=== PATIENT | female | born 1950 | race African-American/Black ===

== ENCOUNTER 2018-08-29 09:12 | Inpatient (IN) | payer MEDICARE, MEDICAID ==
--- NOTE | 2018-08-29 09:44 | ED Physician Chart ---
ED Chief Complaint/HPI - Patient Information Date Seen:: 08/29/18 Time Seen:: 09:35 Chief Complaint:: aggressive behavior History of Present Illness:: Patient has been verbally aggressive and striking out at her extended care facility. Patient states she does not want to return to the facility as she is in now. Allergies:: Allergies Allergy/AdvReac Type Severity Reaction Status Date / Time acetaminophen [From [place]] Allergy Verified 08/29/18 09:33 fluoxetine [From Prozac] Allergy Verified 08/29/18 09:35 gabapentin [From Neurontin] Allergy Verified 08/29/18 09:34 hydrocodone [From [place]] Allergy Verified 08/29/18 09:33 quetiapine [From Seroquel] Allergy Verified 08/29/18 09:35 Historian:: Patient Review:: Nurse's Note Reviewed, Transfer documents Reviewed ED Review of Systems - Review of Systems General/Constitutional: No fever, No chills, No weight loss, No weakness, No diaphoresis, No edema, No loss of appetite Skin: No skin lesions, No rash, No bruising Head: No headache, No light-headedness Eyes: No loss of vision, No pain, No diplopia ENT: No earache, No nasal drainage, No sore throat, No tinnitus Neck: No neck pain, No swelling, No thyromegaly, No stiffness, No mass noted Cardio Vascular: No chest pain, No palpitations, No PND, No orthopnea, No edema Pulmonary: No SOB, No cough, No sputum, No wheezing GI: No nausea, No vomiting, No diarrhea, No pain, No melena, No hematochezia, No constipation, No hematemesis G/U: No dysuria, No frequency, No hematuria Musculoskeletal: No bone or joint pain, No back pain, No muscle pain Endocrine: No polyuria, No polydipsia Psychiatric: Depression, Anxiety Hematopoietic: No bruising, No lymphadenopathy Allergic/Immuno: No urticaria, No angioedema Neurological: No syncope, No focal symptoms, No weakness, No paresthesia, No headache, No seizure, No dizziness, No confusion, No vertigo ED Past Medical History - Past Medical History Past Medical History: HTN, Arthritis, Other (anxiety; impulse disorder; depression; schizophrenia; extrapyramidal symptoms) Family History: None, Other (patient states she does not know her family) Social History: Smoker, Care Facility Surgical History: None Psychiatricy History: Depression, Schizophrenia, Bipolar Family Medical History - Family Member Mother History Unknown: Yes ED Physical Exam - Physical Examination General/Constitutional: Awake, Well-developed, well-nourished Other Gen/Cons comments:: Patient is alert and oriented to the correct month and year but does not know the date Head: Atraumatic Eyes: Lids, conjuctiva normal, PERRL Skin: Nl inspection, No rash, No skin lesions, No ecchymosis ENMT: External ears, nose nl, TM canals nl, Nasal exam nl Other ENMT comments:: Complete upper and lower dentures Neck: No nuchal rigidity Respiratory: Nl effort/Exclusion, Clear to Auscultation Cardio Vascular: RRR, No murmur, gallop, rubs, NL S1 S2 GI: No tenderness/rebounding/guarding, No organomegaly, No hernia, Normal BS's, Nondistended, No mass/bruits : No CVA tenderness Extremities: No tenderness or effusion, Full ROM Neuro/Psych: No focal deficits Misc: No paraspinal tenderness ED Labs/Radiology/EKG Results - Lab Results Results: Laboratory Results Urine Source CLEAN C 08/29/18 09:30 Urine Color YELLOW 08/29/18 09:30 Urine Clarity CLEAR (CLEAR) 08/29/18 09:30 Urine pH 6.5 (4.6 - 8.0) 08/29/18 09:30 Ur Specific [place] 1.010 (1.005-1.030) 08/29/18 09:30 Urine Protein NEGATIVE mg/dL (NEGATIVE) 08/29/18 09:30 Urine Glucose (UA) NEGATIVE mg/dL (NEGATIVE) 08/29/18 09:30 Urine Ketones NEGATIVE mg/dL (NEGATIVE) 08/29/18 09:30 Urine Blood TRACE (NEGATIVE) 08/29/18 09:30 Urine Nitrate NEGATIVE (NEGATIVE) 08/29/18 09:30 Urine Bilirubin NEGATIVE (NEGATIVE) 08/29/18 09:30 Urine Urobilinogen 1.0 E.U./dL (0.2 - 1.0) 08/29/18 09:30 Ur Leukocyte Esterase TRACE (NEGATIVE) H 08/29/18 09:30 Urine RBC 0-2 /hpf (0-5) 08/29/18 09:30 Urine WBC 2-5 /hpf (0-5) 08/29/18 09:30 Ur Epithelial Cells OCCASIONAL /lpf (FEW) 08/29/18 09:30 Urine Bacteria FEW /hpf (NONE SEEN) 08/29/18 09:30 - EKG Interpretations Rate & Rhythm: normal sinus rhythm with a rate 81 [place]: normal Comments:: Q waves in V1 and V2 ED Assessment - Assessment General Assessment: Patient initially refused blood tests. I asked her second time and she still refused. Patient is not a 5150 so she has a right to refuse. I spoke to Troy Ledesma director [facility] who accepted the patient. ED Septic Shock - . Is Septic Shock (SBP<90, OR Lactate>4 mmol\L) present?: No ED Reassessment (Disposition) - Reassessment Reassessment Condition:: Unchanged - Diagnosis Diagnosis:: Schizophrenia with aggressive behavior; bipolar disorder; osteoarthritis; limited database due to refusal of blood tests drawn - Patient Disposition Admitted to:: [facility] Admitting Medical Physician:: Willie Mays Admitting Psych Physician:: Claribel Ramon Condition at Disposition:: Stable, Unchanged
[2018-08-29 09:53] LABS: URINE SOURCE CLEAN C
[2018-08-29 09:57] LABS: URINE BILIRUBIN NEGATIVE (NEGATIVE); URINE BLOOD TRACE (NEGATIVE); URINE GLUCOSE (UA) NEGATIVE (NEGATIVE); URINE KETONE NEGATIVE (NEGATIVE); URINE LEUKOCYTE ESTERASE TRACE (NEGATIVE); URINE MICROSCOPIC INDICATED? YES; URINE NITRATE NEGATIVE (NEGATIVE); URINE PH 6.5 (4.6 - 8.0); URINE PROTEIN NEGATIVE (NEGATIVE)
[2018-08-29 09:59] LABS: URINE CLARITY CLEAR (CLEAR); URINE COLOR YELLOW
[2018-08-29 10:06] LABS: URINE BACTERIA FEW /hpf (NONE SEEN); URINE EPITHELIAL CELLS OCCASIONAL /lpf (FEW); URINE RBC 0-2 /hpf (0-5)
[2018-08-29 12:09] VITALS: BP 147/88
[2018-08-29] MEDS ORDERED: Maalox 30 mL Cup PO PRN (12:09)
[2018-08-29] MEDS ORDERED: Magnesium Hydroxide (MOM) 30 mL UDC PO PRN (12:09)
[2018-08-29] MEDS ORDERED: CELECOXIB 100 MG PO SCH (17:00)
[2018-08-29] MEDS ORDERED: NIFEDIPINE 60 MG PO SCH (17:00)
[2018-08-29] MEDS ORDERED: Non-Formulary Item 1 EA (Acetaminophen [Pain Reliever] 650 MG) PO PRN (17:16)
--- NOTE | 2018-08-29 17:56 | History & Physical ---
ADMIT DATE: 08/29/2018 HISTORY OF PRESENT ILLNESS: The patient is a 68-year-old female with long history of hypertension, degenerative joint disease, seizure disorder, psychosis, admitted to [facility] under Dr. Ramon's service. The patient denies any chest pain, shortness of breath, nausea, vomiting, fever or chills. PAST MEDICAL HISTORY: Significant for hypertension, degenerative joint disease, seizure disorder, psychosis. PAST SURGICAL HISTORY: No recent surgery. SUBSTANCE ABUSE: None. SOCIAL HISTORY: No smoking, no alcohol, no drug. FAMILY HISTORY: Noncontributory. MEDICATIONS: Follow admission reconciliation. ALLERGIES: ACETAMINOPHEN, FLUOXETINE, NEURONTIN, HYDROCODONE, QUETIAPINE. REVIEW OF SYSTEMS: RENAL SYSTEM: No history of chronic renal disorder. CARDIOVASCULAR SYSTEM: She has history of hypertension. ENDOCRINE SYSTEM: No diabetes or thyroid problem. GASTROINTESTINAL SYSTEM: No upper or lower GI bleeding. NEUROLOGICAL SYSTEM: She has history of seizure disorder. SKELETOMUSCULAR SYSTEM: No muscular dystrophy. HEMATOLOGICAL SYSTEM: No bleeding tendencies. RESPIRATORY SYSTEM: No asthma. GENITOURINARY SYSTEM: No dysuria or hematuria. PHYSICAL EXAMINATION: GENERAL: She is awake, alert, mildly confused. No focal deficit. VITAL SIGNS: Temperature 98.2, heart rate 69, blood pressure 140/87. HEENT: Normocephalic. Pupils reactive to light and accommodation. Sclerae clear. NECK: Supple. Negative for lymphadenopathy, JVD, or bruit. CHEST: Entry of air bilaterally normal. No rales, rhonchi or wheezing. HEART: S1, S2 normal. No gallop rhythm. ABDOMEN: Soft, bowel sounds positive. EXTREMITIES: No edema. NEUROLOGIC: She is awake, alert, mildly confused. No focal deficit. Cranial nerves 2-12 intact. ASSESSMENT: 1. Hypertension. 2. Degenerative joint disease. 3. Seizure disorder. 4. Psychosis. PLAN: The patient admitted to the hospital under Dr. Ramon's service. Medical problem addressed during hospitalization is psychosis. Medical problems addressed at discharge are hypertension, degenerative joint disease, seizure disorder. The patient is medically stable for activity. The patient is a full code. Thank you Dr. Ramon for asking me to see your patient. JOB# [id number]
[2018-08-29] MEDS: NIFEdipine 30 mg ER Tab PO SCH (18:03)
[2018-08-29] MEDS ORDERED: Non-Formulary Item 1 EA (Carbamazepine [Tegretol Xr] 400 MG) PO SCH (21:00)
[2018-08-29] MEDS: Benztropine 1 MG TAB PO SCH (21:23)
[2018-08-30] MEDS: NIFEdipine 30 mg ER Tab PO SCH ×2 (08:52→16:49)
[2018-08-30] MEDS: Multivitamin Tab PO SCH (08:53)
[2018-08-30] MEDS ORDERED: Non-Formulary Item 1 EA (Multivitamin [Multivitamins] 1 CAP) PO SCH (09:00)
[2018-08-30] MEDS: Benztropine 1 MG TAB PO SCH (20:35)
[2018-08-30] MEDS ORDERED: OLANZapine 5 mg Oral Disintegrating Tab PO SCH (21:00)
--- NOTE | 2018-08-30 23:45 | Internal Medicine Prog Note ---
Internal Medicine Subjective - Subjective Service Date: 08/30/18 Patient seen and examined:: without staff Patient is:: awake, verbal, in bed, talking, confused Per staff patient has:: no adverse event Internal Medicine Objective - Results Recent Labs: Laboratory Last Values Urine Source CLEAN C 08/29/18 09:30 Urine Color YELLOW 08/29/18 09:30 Urine Clarity CLEAR (CLEAR) 08/29/18 09:30 Urine pH 6.5 (4.6 - 8.0) 08/29/18 09:30 Ur Specific [place] 1.010 (1.005-1.030) 08/29/18 09:30 Urine Protein NEGATIVE mg/dL (NEGATIVE) 08/29/18 09:30 Urine Glucose (UA) NEGATIVE mg/dL (NEGATIVE) 08/29/18 09:30 Urine Ketones NEGATIVE mg/dL (NEGATIVE) 08/29/18 09:30 Urine Blood TRACE (NEGATIVE) 08/29/18 09:30 Urine Nitrate NEGATIVE (NEGATIVE) 08/29/18 09:30 Urine Bilirubin NEGATIVE (NEGATIVE) 08/29/18 09:30 Urine Urobilinogen 1.0 E.U./dL (0.2 - 1.0) 08/29/18 09:30 Ur Leukocyte Esterase TRACE (NEGATIVE) H 08/29/18 09:30 Urine RBC 0-2 /hpf (0-5) 08/29/18 09:30 Urine WBC 2-5 /hpf (0-5) 08/29/18 09:30 Ur Epithelial Cells OCCASIONAL /lpf (FEW) 08/29/18 09:30 Urine Bacteria FEW /hpf (NONE SEEN) 08/29/18 09:30 - Physical Exam Vitals and I&O: Vital Signs Temp 97.1 F 08/30/18 20:00 Pulse 72 08/30/18 20:00 Resp 20 08/30/18 20:00 BP 141/88 08/30/18 20:00 Pulse Ox 98 08/30/18 20:00 Intake & Output 08/30/18 08/30/18 08/31/18 06:59 18:59 06:59 Intake Total 120 1000 Balance 120 1000 Intake: Oral 120 1000 Other: # Voids 2 4 # Bowel Movements 0 1 Active Medications: Current Medications Acetaminophen (Tylenol) 650 mg PO Q4HR PRN PRN Reason: Mild Pain / Temp above 100 Stop: 10/28/18 12:08 Al Hydrox/Mg Hydrox/Simethicone (Maalox) 30 ml PO Q4HR PRN PRN Reason: GI DISTRESS Stop: 10/28/18 12:08 Benztropine Mesylate (Cogentin) 2 mg PO HS NICOLE Stop: 10/28/18 20:59 Last Admin: 08/30/18 20:35 Dose: Not Given Carbamazepine (Tegretol) 400 mg PO HS NICOLE Stop: 10/28/18 20:59 Last Admin: 08/30/18 20:35 Dose: Not Given Celecoxib (Celebrex) 100 mg PO BID NICOLE Stop: 10/28/18 16:59 Last Admin: 08/30/18 16:49 Dose: 100 mg Docusate Sodium (Colace) 100 mg PO DAILY NICOLE Stop: 10/29/18 08:59 Last Admin: 08/30/18 08:53 Dose: 100 mg Lorazepam (Ativan) 0.5 mg PO Q4H PRN; Protocol PRN Reason: Agitation Stop: 10/28/18 16:54 Magnesium Hydroxide (Milk Of Magnesia) 30 ml PO HS PRN PRN Reason: Constipation Multivitamins/Vitamin C (Theragran) 1 tab PO DAILY NICOLE Stop: 10/29/18 08:59 Last Admin: 08/30/18 08:53 Dose: 1 tab Nifedipine (Procardia Xl) 60 mg PO BID NICOLE Stop: 10/28/18 16:59 Last Admin: 08/30/18 16:49 Dose: 60 mg Olanzapine (Zyprexa Zydis) 5 mg PO HS NICOLE; Protocol Stop: 10/29/18 20:59 Last Admin: 08/30/18 20:35 Dose: Not Given Zolpidem Tartrate (Ambien) 5 mg PO HS PRN PRN Reason: Insomnia Stop: 10/28/18 12:08 General: alert HEENT: NC/AT, PERRLA, EOMI, anicteric sclerae, throat clear Neck: Supple, No JVD, No thyromegaly, +2 carotid pulse wo bruit, No LAD Lungs: CTAB Cardiovascular: Normal S1, Normal S2, without murmur Abdomen: soft, non-tender, non-distended Extremities: clear Neurological: no change Internal Medicine Assmt/Plan - Assessment Assessment: 1.HTN. 2.SEIZURE. 3.PSYCHOSIS - Plan Plan: CONTINUE ON CURRENT MEDICATION AND DIET.
--- NOTE | 2018-08-30 23:47 | Psychiatric Evaluation ---
DATE OF SERVICE: 08/29/2018 CHIEF COMPLAINT: Agitation and aggressive behavior. HISTORY OF PRESENT ILLNESS: The patient is a 68-year-old female with history of bipolar disorder. The patient was transferred from [facility] because of the striking out behavior and tried to hit staff and other patients. The patient also has been verbally abusive and verbally aggressive toward the staff and others. She also has not been able to follow any of directions. Staff was not able to handle her agitation and her irritability and the patient was transferred to [facility]. The patient is still angry and agitated and in irritable mood. She is taking Tegretol, but it is not helping to control her temper and the patient needs lots of redirections. PAST PSYCHIATRIC HISTORY: The patient has a diagnosis of bipolar disorder and she is taking Tegretol. PAST MEDICAL HISTORY: The patient has hypertension as well as muscle weakness. SOCIAL HISTORY: The patient said that she is single, never and that she has no children. She denies smoking cigarettes, drinking alcohol, use any street drugs. ALLERGIES: NORCO, NEURONTIN, PROZAC AND SEROQUEL. MENTAL STATUS EXAMINATION: A 68-year-old -Citizen Of [place] female, appears slightly older than her stated age. Anxious, sad affect. In a depressed mood. Irritable and easily agitated. Seems to be preoccupied and responding at times. The patient denied any auditory or visual hallucinations, but seems to be actively responding. The patient denies any actual suicidal or homicidal ideations, but she is agitated and in irritable mood. The patient is alert and oriented to time and situation and person, but not to date or place. Intact immediate, recent and remote memories and she did remember her birthday and she remembered that she lives in a assisted at [place]. She seems to be of average intelligence based on her verbal ability. ASSESSMENT: PRIMARY DIAGNOSES: Bipolar disorder, manic episode, severe, with psychotic features. MEDICAL DIAGNOSES: Hypertension, muscle weakness. TREATMENT PLAN: We will continue to monitor her behavior and her condition closely. Also, we will monitor Tegretol and we will add Zyprexa and will adjust the dose. Also, we will work on behavioral modification and her poor impulse control. ESTIMATED LENGTH OF STAY: 5-7 days. THE PATIENT'S STRENGTHS AND WEAKNESSES: The patient's strength is not clear at this time. Weaknesses are ineffective coping and poor impulse control. AFTER DISCHARGE PLAN: The patient will return to [facility] and outpatient treatment and followup will continue as an outpatient. CRITERIA FOR DISCHARGE: The patient will not be psychotic and aggressive and will stabilize psychotropic medications and will establish outpatient treatment plans. [facility]# [id number]
[2018-08-31] MEDS: Multivitamin Tab PO SCH (09:08)
[2018-08-31] MEDS: NIFEdipine 30 mg ER Tab PO SCH ×2 (09:08→16:54)
--- NOTE | 2018-08-31 15:21 | Internal Medicine Prog Note ---
Internal Medicine Subjective - Subjective Service Date: 08/31/18 Patient seen and examined:: without staff (SHE STILL HAS JOINTS PAIN) Patient is:: awake, verbal, in bed, talking, confused Per staff patient has:: no adverse event Internal Medicine Objective - Results Recent Labs: Laboratory Last Values Urine Source CLEAN C 08/29/18 09:30 Urine Color YELLOW 08/29/18 09:30 Urine Clarity CLEAR (CLEAR) 08/29/18 09:30 Urine pH 6.5 (4.6 - 8.0) 08/29/18 09:30 Ur Specific [place] 1.010 (1.005-1.030) 08/29/18 09:30 Urine Protein NEGATIVE mg/dL (NEGATIVE) 08/29/18 09:30 Urine Glucose (UA) NEGATIVE mg/dL (NEGATIVE) 08/29/18 09:30 Urine Ketones NEGATIVE mg/dL (NEGATIVE) 08/29/18 09:30 Urine Blood TRACE (NEGATIVE) 08/29/18 09:30 Urine Nitrate NEGATIVE (NEGATIVE) 08/29/18 09:30 Urine Bilirubin NEGATIVE (NEGATIVE) 08/29/18 09:30 Urine Urobilinogen 1.0 E.U./dL (0.2 - 1.0) 08/29/18 09:30 Ur Leukocyte Esterase TRACE (NEGATIVE) H 08/29/18 09:30 Urine RBC 0-2 /hpf (0-5) 08/29/18 09:30 Urine WBC 2-5 /hpf (0-5) 08/29/18 09:30 Ur Epithelial Cells OCCASIONAL /lpf (FEW) 08/29/18 09:30 Urine Bacteria FEW /hpf (NONE SEEN) 08/29/18 09:30 - Physical Exam Vitals and I&O: Vital Signs Temp 98.7 F 08/31/18 14:00 Pulse 76 08/31/18 14:00 Resp 20 08/31/18 14:00 BP 148/90 08/31/18 14:00 Pulse Ox 94 08/31/18 14:00 Intake & Output 08/30/18 08/31/18 08/31/18 18:59 06:59 18:59 Intake Total 1000 360 Balance 1000 360 Intake: Oral 1000 360 Other: # Voids 4 2 # Bowel Movements 1 Active Medications: Current Medications Acetaminophen (Tylenol) 650 mg PO Q4HR PRN PRN Reason: Mild Pain / Temp above 100 Stop: 10/28/18 12:08 Al Hydrox/Mg Hydrox/Simethicone (Maalox) 30 ml PO Q4HR PRN PRN Reason: GI DISTRESS Stop: 10/28/18 12:08 Benztropine Mesylate (Cogentin) 2 mg PO HS NICOLE Stop: 10/28/18 20:59 Last Admin: 08/30/18 20:35 Dose: Not Given Carbamazepine (Tegretol) 400 mg PO HS NICOLE Stop: 10/28/18 20:59 Last Admin: 08/30/18 20:35 Dose: Not Given Celecoxib (Celebrex) 100 mg PO BID NICOLE Stop: 10/28/18 16:59 Last Admin: 08/31/18 09:08 Dose: Not Given Docusate Sodium (Colace) 100 mg PO DAILY NICOLE Stop: 10/29/18 08:59 Last Admin: 08/31/18 09:08 Dose: Not Given Lorazepam (Ativan) 0.5 mg PO Q4H PRN; Protocol PRN Reason: Agitation Stop: 10/28/18 16:54 Magnesium Hydroxide (Milk Of Magnesia) 30 ml PO HS PRN PRN Reason: Constipation Multivitamins/Vitamin C (Theragran) 1 tab PO DAILY NICOLE Stop: 10/29/18 08:59 Last Admin: 08/31/18 09:08 Dose: Not Given Nifedipine (Procardia Xl) 60 mg PO BID NICOLE Stop: 10/28/18 16:59 Last Admin: 08/31/18 09:08 Dose: Not Given Olanzapine (Zyprexa Zydis) 7.5 mg PO HS NICOLE; Protocol Stop: 10/30/18 20:59 Zolpidem Tartrate (Ambien) 5 mg PO HS PRN PRN Reason: Insomnia Stop: 10/28/18 12:08 General: alert HEENT: NC/AT, PERRLA, EOMI, anicteric sclerae, throat clear Neck: Supple, No JVD, No thyromegaly, +2 carotid pulse wo bruit, No LAD Lungs: CTAB Cardiovascular: Normal S1, Normal S2, without murmur Abdomen: soft, non-tender, non-distended Extremities: clear Neurological: no change Internal Medicine Assmt/Plan - Assessment Assessment: 1.HTN. 2.SEIZURE. 3.POLYARTHRITIS 4.PSYCHOSIS - Plan Plan: CONTINUE ON CURRENT MEDICATION AND DIET.
[2018-08-31] MEDS: Benztropine 1 MG TAB PO SCH (20:59)
[2018-08-31] MEDS: OLANZapine 5 mg Oral Disintegrating Tab PO SCH (21:00)
--- NOTE | 2018-08-31 23:10 | Progress Notes ---
DATE: 08/31/2018 SUBJECTIVE: A 68-year-old female with history of bipolar, transferred from [facility], striking out behaviors, verbally abusive, verbally aggressive towards others, preoccupied. On [id number], the patient notes she is "very agitated" at people stating that she has no money, getting into arguments with roommates, noncompliant with medications, believing that the medications are not her. Noted to be loud, screaming, yelling, difficult to approach. ASSESSMENT: The patient is agitated, irritable, suspicious, and paranoid. PLAN: We will continue to monitor and will be recommending titration of the antipsychotic medications. [facility]# [id number]
[2018-09-01] MEDS: Multivitamin Tab PO SCH (09:20)
[2018-09-01] MEDS: NIFEdipine 30 mg ER Tab PO SCH ×2 (09:20→16:09)
--- NOTE | 2018-09-01 18:50 | Internal Medicine Prog Note ---
Internal Medicine Subjective - Subjective Service Date: 09/01/18 Patient seen and examined:: without staff (SHE FEELS WELL) Patient is:: awake, verbal, in bed, talking, confused Per staff patient has:: no adverse event Internal Medicine Objective - Results Recent Labs: Laboratory Last Values Urine Source CLEAN C 08/29/18 09:30 Urine Color YELLOW 08/29/18 09:30 Urine Clarity CLEAR (CLEAR) 08/29/18 09:30 Urine pH 6.5 (4.6 - 8.0) 08/29/18 09:30 Ur Specific [place] 1.010 (1.005-1.030) 08/29/18 09:30 Urine Protein NEGATIVE mg/dL (NEGATIVE) 08/29/18 09:30 Urine Glucose (UA) NEGATIVE mg/dL (NEGATIVE) 08/29/18 09:30 Urine Ketones NEGATIVE mg/dL (NEGATIVE) 08/29/18 09:30 Urine Blood TRACE (NEGATIVE) 08/29/18 09:30 Urine Nitrate NEGATIVE (NEGATIVE) 08/29/18 09:30 Urine Bilirubin NEGATIVE (NEGATIVE) 08/29/18 09:30 Urine Urobilinogen 1.0 E.U./dL (0.2 - 1.0) 08/29/18 09:30 Ur Leukocyte Esterase TRACE (NEGATIVE) H 08/29/18 09:30 Urine RBC 0-2 /hpf (0-5) 08/29/18 09:30 Urine WBC 2-5 /hpf (0-5) 08/29/18 09:30 Ur Epithelial Cells OCCASIONAL /lpf (FEW) 08/29/18 09:30 Urine Bacteria FEW /hpf (NONE SEEN) 08/29/18 09:30 - Physical Exam Vitals and I&O: Vital Signs Temp 97.4 F 09/01/18 06:45 Pulse 79 09/01/18 16:09 Resp 18 09/01/18 14:00 BP 177/105 09/01/18 16:09 Pulse Ox 98 09/01/18 06:45 Intake & Output 08/31/18 09/01/18 09/01/18 18:59 06:59 18:59 Intake Total 120 Balance 120 Intake: Oral 120 Other: # Voids 3 Active Medications: Current Medications Acetaminophen (Tylenol) 650 mg PO Q4HR PRN PRN Reason: Mild Pain / Temp above 100 Stop: 10/28/18 12:08 Al Hydrox/Mg Hydrox/Simethicone (Maalox) 30 ml PO Q4HR PRN PRN Reason: GI DISTRESS Stop: 10/28/18 12:08 Benztropine Mesylate (Cogentin) 2 mg PO HS NICOLE Stop: 10/28/18 20:59 Last Admin: 08/31/18 20:59 Dose: Not Given Carbamazepine (Tegretol) 400 mg PO HS NICOLE Stop: 10/28/18 20:59 Last Admin: 08/31/18 21:00 Dose: Not Given Celecoxib (Celebrex) 100 mg PO BID NICOLE Stop: 10/28/18 16:59 Last Admin: 09/01/18 16:07 Dose: Not Given Docusate Sodium (Colace) 100 mg PO DAILY NICOLE Stop: 10/29/18 08:59 Last Admin: 09/01/18 09:20 Dose: 100 mg Lorazepam (Ativan) 0.5 mg PO Q4H PRN; Protocol PRN Reason: Agitation Stop: 10/28/18 16:54 Magnesium Hydroxide (Milk Of Magnesia) 30 ml PO HS PRN PRN Reason: Constipation Multivitamins/Vitamin C (Theragran) 1 tab PO DAILY NICOLE Stop: 10/29/18 08:59 Last Admin: 09/01/18 09:20 Dose: Not Given Nifedipine (Procardia Xl) 60 mg PO BID NICOLE Stop: 10/28/18 16:59 Last Admin: 09/01/18 16:09 Dose: 60 mg Olanzapine (Zyprexa Zydis) 7.5 mg PO HS NICOLE; Protocol Stop: 10/30/18 20:59 Last Admin: 08/31/18 21:00 Dose: Not Given Zolpidem Tartrate (Ambien) 5 mg PO HS PRN PRN Reason: Insomnia Stop: 10/28/18 12:08 Last Admin: 09/01/18 00:42 Dose: 5 mg General: alert HEENT: NC/AT, PERRLA, EOMI, anicteric sclerae, throat clear Neck: Supple, No JVD, No thyromegaly, +2 carotid pulse wo bruit, No LAD Lungs: CTAB Cardiovascular: Normal S1, Normal S2, without murmur Abdomen: soft, non-tender, non-distended Extremities: clear Neurological: no change Internal Medicine Assmt/Plan - Assessment Assessment: 1.HTN. 2.SEIZURE. 3.POLYARTHRITIS 4.PSYCHOSIS - Plan Plan: CONTINUE ON CURRENT MEDICATION AND DIET.
--- NOTE | 2018-09-01 19:39 | Progress Notes ---
DATE: 09/01/2018 SUBJECTIVE: The patient slept for about 5 hours last night. Remains paranoid, delusional, yelling sometimes. Does not want to take psychiatric medications, refuses sometimes. Needing lot of prompting and redirection. Concerns about her compliance, she has been refusing for a few days, erratic when it comes to medications. Difficult to interview her as she gets really upset, demanding to leave, telling staff to get out of her room, agitated when she answers questions, is telling me that she wants somewhere to go. PLAN: We will continue to monitor ongoing concerns about her delusions, psychotic state, and med refusals. We will continue to monitor. She may need a [place] petition. JOB# [id number]
[2018-09-01] MEDS: Benztropine 1 MG TAB PO SCH (21:05)
[2018-09-01] MEDS: OLANZapine 5 mg Oral Disintegrating Tab PO SCH (21:06)
[2018-09-02] MEDS: risperiDONE 1 mg/mL 30 mL Bottle PO SCH (08:47)
[2018-09-02] MEDS: NIFEdipine 30 mg ER Tab PO SCH ×3 (09:47→17:55)
[2018-09-02] MEDS: Multivitamin Tab PO SCH (09:47)
[2018-09-02] MEDS: Benztropine 1 MG TAB PO SCH (20:33)
[2018-09-02] MEDS: OLANZapine 5 mg Oral Disintegrating Tab PO SCH (20:34)
--- NOTE | 2018-09-02 23:46 | Internal Medicine Prog Note ---
Internal Medicine Subjective - Subjective Service Date: 09/02/18 Patient seen and examined:: without staff Patient is:: awake, verbal, in bed, talking, confused Per staff patient has:: no adverse event Internal Medicine Objective - Results Recent Labs: Laboratory Last Values Urine Source CLEAN C 08/29/18 09:30 Urine Color YELLOW 08/29/18 09:30 Urine Clarity CLEAR (CLEAR) 08/29/18 09:30 Urine pH 6.5 (4.6 - 8.0) 08/29/18 09:30 Ur Specific [place] 1.010 (1.005-1.030) 08/29/18 09:30 Urine Protein NEGATIVE mg/dL (NEGATIVE) 08/29/18 09:30 Urine Glucose (UA) NEGATIVE mg/dL (NEGATIVE) 08/29/18 09:30 Urine Ketones NEGATIVE mg/dL (NEGATIVE) 08/29/18 09:30 Urine Blood TRACE (NEGATIVE) 08/29/18 09:30 Urine Nitrate NEGATIVE (NEGATIVE) 08/29/18 09:30 Urine Bilirubin NEGATIVE (NEGATIVE) 08/29/18 09:30 Urine Urobilinogen 1.0 E.U./dL (0.2 - 1.0) 08/29/18 09:30 Ur Leukocyte Esterase TRACE (NEGATIVE) H 08/29/18 09:30 Urine RBC 0-2 /hpf (0-5) 08/29/18 09:30 Urine WBC 2-5 /hpf (0-5) 08/29/18 09:30 Ur Epithelial Cells OCCASIONAL /lpf (FEW) 08/29/18 09:30 Urine Bacteria FEW /hpf (NONE SEEN) 08/29/18 09:30 - Physical Exam Vitals and I&O: Vital Signs Temp 97.9 F 09/02/18 21:01 Pulse 99 09/02/18 21:01 Resp 20 09/02/18 21:01 BP 130/90 09/02/18 21:01 Pulse Ox 90 09/02/18 21:01 Intake & Output 09/02/18 09/02/18 09/03/18 06:59 18:59 06:59 Intake Total 120 800 120 Balance 120 800 120 Intake: Oral 120 800 120 Other: # Voids 3 3 3 # Bowel Movements 0 1 0 Active Medications: Current Medications Al Hydrox/Mg Hydrox/Simethicone (Maalox) 30 ml PO Q4HR PRN PRN Reason: GI DISTRESS Stop: 10/28/18 12:08 Benztropine Mesylate (Cogentin) 2 mg PO HS [facility] Stop: 10/28/18 20:59 Last Admin: 09/02/18 20:33 Dose: Not Given Carbamazepine (Tegretol) 400 mg PO HS [facility] Stop: 10/28/18 20:59 Last Admin: 09/02/18 20:33 Dose: Not Given Celecoxib (Celebrex) 100 mg PO BID [facility] Stop: 10/28/18 16:59 Last Admin: 09/02/18 17:55 Dose: Not Given Docusate Sodium (Colace) 100 mg PO DAILY [facility] Stop: 10/29/18 08:59 Last Admin: 09/02/18 09:46 Dose: 100 mg Lorazepam (Ativan) 0.5 mg PO Q4H PRN; Protocol PRN Reason: Agitation Stop: 10/28/18 16:54 Last Admin: 09/02/18 10:47 Dose: 0.5 mg Magnesium Hydroxide (Milk Of Magnesia) 30 ml PO HS PRN PRN Reason: Constipation Multivitamins/Vitamin C (Theragran) 1 tab PO DAILY [facility] Stop: 10/29/18 08:59 Last Admin: 09/02/18 09:47 Dose: 1 tab Nifedipine (Procardia Xl) 60 mg PO BID [facility] Stop: 10/28/18 16:59 Last Admin: 09/02/18 17:55 Dose: Not Given Olanzapine (Zyprexa Zydis) 7.5 mg PO HS [facility]; Protocol Stop: 10/30/18 20:59 Last Admin: 09/02/18 20:34 Dose: Not Given Risperidone (Risperdal) 1 mg PO BID [facility]; Protocol Stop: 11/01/18 08:59 Zolpidem Tartrate (Ambien) 5 mg PO HS PRN PRN Reason: Insomnia Stop: 10/28/18 12:08 Last Admin: 09/02/18 20:33 Dose: 5 mg General: alert HEENT: NC/AT, PERRLA, EOMI, anicteric sclerae, throat clear Neck: Supple, No JVD, No thyromegaly, +2 carotid pulse wo bruit, No LAD Lungs: CTAB Cardiovascular: Normal S1, Normal S2, without murmur Abdomen: soft, non-tender, non-distended Extremities: clear Neurological: no change Internal Medicine Assmt/Plan - Assessment Assessment: 1.HTN. 2.SEIZURE. 3.POLYARTHRITIS 4.PSYCHOSIS - Plan Plan: CONTINUE ON CURRENT MEDICATION AND DIET.
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
[2018-09-03] MEDS: risperiDONE 1 mg/mL 30 mL Bottle PO SCH ×2 (08:46→17:26)
[2018-09-03] MEDS: Multivitamin Tab PO SCH (08:47)
[2018-09-03] MEDS: NIFEdipine 30 mg ER Tab PO SCH ×3 (09:10→17:25)
--- NOTE | 2018-09-03 10:48 | Internal Medicine Prog Note ---
Internal Medicine Subjective - Subjective Service Date: 09/03/18 Patient seen and examined:: with staff (SHE HAS LESS BACK PAIN) Patient is:: awake, verbal, in bed, talking, confused Per staff patient has:: no adverse event Internal Medicine Objective - Results Recent Labs: Laboratory Last Values Urine Source CLEAN C 08/29/18 09:30 Urine Color YELLOW 08/29/18 09:30 Urine Clarity CLEAR (CLEAR) 08/29/18 09:30 Urine pH 6.5 (4.6 - 8.0) 08/29/18 09:30 Ur Specific [place] 1.010 (1.005-1.030) 08/29/18 09:30 Urine Protein NEGATIVE mg/dL (NEGATIVE) 08/29/18 09:30 Urine Glucose (UA) NEGATIVE mg/dL (NEGATIVE) 08/29/18 09:30 Urine Ketones NEGATIVE mg/dL (NEGATIVE) 08/29/18 09:30 Urine Blood TRACE (NEGATIVE) 08/29/18 09:30 Urine Nitrate NEGATIVE (NEGATIVE) 08/29/18 09:30 Urine Bilirubin NEGATIVE (NEGATIVE) 08/29/18 09:30 Urine Urobilinogen 1.0 E.U./dL (0.2 - 1.0) 08/29/18 09:30 Ur Leukocyte Esterase TRACE (NEGATIVE) H 08/29/18 09:30 Urine RBC 0-2 /hpf (0-5) 08/29/18 09:30 Urine WBC 2-5 /hpf (0-5) 08/29/18 09:30 Ur Epithelial Cells OCCASIONAL /lpf (FEW) 08/29/18 09:30 Urine Bacteria FEW /hpf (NONE SEEN) 08/29/18 09:30 - Physical Exam Vitals and I&O: Vital Signs Temp 97.7 F 09/03/18 06:26 Pulse 70 09/03/18 09:26 Resp 19 09/03/18 06:26 BP 154/98 09/03/18 09:26 Pulse Ox 98 09/03/18 06:26 Intake & Output 09/02/18 09/03/18 09/03/18 18:59 06:59 18:59 Intake Total 800 240 Balance 800 240 Intake: Oral 800 240 Other: # Voids 3 2 # Bowel Movements 1 0 Active Medications: Current Medications Al Hydrox/Mg Hydrox/Simethicone (Maalox) 30 ml PO Q4HR PRN PRN Reason: GI DISTRESS Stop: 10/28/18 12:08 Benztropine Mesylate (Cogentin) 2 mg PO HS [facility] Stop: 10/28/18 20:59 Last Admin: 09/02/18 20:33 Dose: Not Given Carbamazepine (Tegretol) 400 mg PO HS [facility] Stop: 10/28/18 20:59 Last Admin: 09/02/18 20:33 Dose: Not Given Celecoxib (Celebrex) 100 mg PO BID [facility] Stop: 10/28/18 16:59 Last Admin: 09/03/18 08:47 Dose: Not Given Docusate Sodium (Colace) 100 mg PO DAILY [facility] Stop: 10/29/18 08:59 Last Admin: 09/03/18 08:47 Dose: Not Given Lorazepam (Ativan) 0.5 mg PO Q4H PRN; Protocol PRN Reason: Agitation Stop: 10/28/18 16:54 Last Admin: 09/02/18 10:47 Dose: 0.5 mg Magnesium Hydroxide (Milk Of Magnesia) 30 ml PO HS PRN PRN Reason: Constipation Multivitamins/Vitamin C (Theragran) 1 tab PO DAILY [facility] Stop: 10/29/18 08:59 Last Admin: 09/03/18 08:47 Dose: Not Given Nifedipine (Procardia Xl) 60 mg PO BID [facility] Stop: 10/28/18 16:59 Last Admin: 09/03/18 09:26 Dose: 60 mg Olanzapine (Zyprexa Zydis) 7.5 mg PO HS [facility]; Protocol Stop: 10/30/18 20:59 Last Admin: 09/02/18 20:34 Dose: Not Given Risperidone (Risperdal) 1 mg PO BID [facility]; Protocol Stop: 11/01/18 08:59 Last Admin: 09/03/18 08:46 Dose: Not Given Zolpidem Tartrate (Ambien) 5 mg PO HS PRN PRN Reason: Insomnia Stop: 10/28/18 12:08 Last Admin: 09/02/18 20:33 Dose: 5 mg General: alert HEENT: NC/AT, PERRLA, EOMI, anicteric sclerae, throat clear Neck: Supple, No JVD, No thyromegaly, +2 carotid pulse wo bruit, No LAD Lungs: CTAB Cardiovascular: Normal S1, Normal S2, without murmur Abdomen: soft, non-tender, non-distended Extremities: clear Neurological: no change Internal Medicine Assmt/Plan - Assessment Assessment: 1.HTN. 2.SEIZURE. 3.POLYARTHRITIS 4.PSYCHOSIS - Plan Plan: CONTINUE ON CURRENT MEDICATION AND DIET.
[2018-09-03] MEDS: OLANZapine 5 mg Oral Disintegrating Tab PO SCH ×2 (21:00→21:05)
[2018-09-03] MEDS: Benztropine 1 MG TAB PO SCH ×2 (21:00→21:04)
--- NOTE | 2018-09-04 02:37 | Progress Notes ---
DATE: 09/03/[address] Ramon. Case was discussed with staff of the patient, reviewed records. A 68-year-old female who was admitted on 08/29/2018 because of agitation and aggressive behavior with a history of bipolar disorder, transferred from [facility]. The patient was striking out at staff, hitting staff and other patients, has been verbally abusive, aggressive towards staff, also has been aggressive here on the unit. She was on the observation room because of her agitated behavior. The patient is unpredictable and impulsive. Continues to need redirection. Continues to have poor insight, severely agitated and aggressive. No side effects of the medication, no sedation, no nausea and no extrapyramidal symptoms. She is on Cogentin 2 mg at bedtime, Tegretol 400 mg at bedtime, Zyprexa 7.5 mg at bedtime, Risperdal 1 mg twice a day. No sedation, no nausea, no extrapyramidal symptoms. We will continue to work with the patient in group therapy, milieu therapy and adjust the medications as needed. JOB# [id number]
[2018-09-04] MEDS: NIFEdipine 30 mg ER Tab PO SCH ×2 (08:59→17:08)
[2018-09-04] MEDS: Multivitamin Tab PO SCH (09:01)
[2018-09-04] MEDS: risperiDONE 1 mg/mL 30 mL Bottle PO SCH ×2 (09:05→17:08)
[2018-09-04] MEDS: Benztropine 1 MG TAB PO SCH (21:00)
[2018-09-04] MEDS: OLANZapine 5 mg Oral Disintegrating Tab PO SCH (21:00)
--- NOTE | 2018-09-04 21:02 | Internal Medicine Prog Note ---
Internal Medicine Subjective - Subjective Service Date: 09/04/18 Patient seen and examined:: without staff (SHE FEELS BETTER,LESS PAIN) Patient is:: awake, verbal, in bed, talking, confused Per staff patient has:: no adverse event Internal Medicine Objective - Results Recent Labs: Laboratory Last Values Urine Source CLEAN C 08/29/18 09:30 Urine Color YELLOW 08/29/18 09:30 Urine Clarity CLEAR (CLEAR) 08/29/18 09:30 Urine pH 6.5 (4.6 - 8.0) 08/29/18 09:30 Ur Specific [place] 1.010 (1.005-1.030) 08/29/18 09:30 Urine Protein NEGATIVE mg/dL (NEGATIVE) 08/29/18 09:30 Urine Glucose (UA) NEGATIVE mg/dL (NEGATIVE) 08/29/18 09:30 Urine Ketones NEGATIVE mg/dL (NEGATIVE) 08/29/18 09:30 Urine Blood TRACE (NEGATIVE) 08/29/18 09:30 Urine Nitrate NEGATIVE (NEGATIVE) 08/29/18 09:30 Urine Bilirubin NEGATIVE (NEGATIVE) 08/29/18 09:30 Urine Urobilinogen 1.0 E.U./dL (0.2 - 1.0) 08/29/18 09:30 Ur Leukocyte Esterase TRACE (NEGATIVE) H 08/29/18 09:30 Urine RBC 0-2 /hpf (0-5) 08/29/18 09:30 Urine WBC 2-5 /hpf (0-5) 08/29/18 09:30 Ur Epithelial Cells OCCASIONAL /lpf (FEW) 08/29/18 09:30 Urine Bacteria FEW /hpf (NONE SEEN) 08/29/18 09:30 - Physical Exam Vitals and I&O: Vital Signs Temp 97.5 F 09/04/18 20:00 Pulse 113 09/04/18 20:00 Resp 19 09/04/18 20:00 BP 145/86 09/04/18 20:00 Pulse Ox 97 09/04/18 20:00 Intake & Output 09/04/18 09/04/18 09/05/18 06:59 18:59 06:59 Intake Total 240 1200 Balance 240 1200 Intake: Oral 240 1200 Other: # Voids 2 # Bowel Movements 0 1 Active Medications: Current Medications Al Hydrox/Mg Hydrox/Simethicone (Maalox) 30 ml PO Q4HR PRN PRN Reason: GI DISTRESS Stop: 10/28/18 12:08 Benztropine Mesylate (Cogentin) 2 mg PO HS [facility] Stop: 10/28/18 20:59 Last Admin: 09/03/18 21:00 Dose: Not Given Carbamazepine (Tegretol) 400 mg PO HS [facility] Stop: 10/28/18 20:59 Last Admin: 09/03/18 21:00 Dose: Not Given Celecoxib (Celebrex) 100 mg PO BID [facility] Stop: 10/28/18 16:59 Last Admin: 09/04/18 17:08 Dose: Not Given Docusate Sodium (Colace) 100 mg PO DAILY [facility] Stop: 10/29/18 08:59 Last Admin: 09/04/18 09:00 Dose: 100 mg Lorazepam (Ativan) 0.5 mg PO Q4H PRN; Protocol PRN Reason: Agitation Stop: 10/28/18 16:54 Last Admin: 09/02/18 10:47 Dose: 0.5 mg Magnesium Hydroxide (Milk Of Magnesia) 30 ml PO HS PRN PRN Reason: Constipation Multivitamins/Vitamin C (Theragran) 1 tab PO DAILY [facility] Stop: 10/29/18 08:59 Last Admin: 09/04/18 09:01 Dose: Not Given Nifedipine (Procardia Xl) 60 mg PO BID [facility] Stop: 10/28/18 16:59 Last Admin: 09/04/18 17:08 Dose: 60 mg Olanzapine (Zyprexa Zydis) 7.5 mg PO HS [facility]; Protocol Stop: 10/30/18 20:59 Last Admin: 09/03/18 21:00 Dose: Not Given Risperidone (Risperdal) 1 mg PO BID [facility]; Protocol Stop: 11/01/18 08:59 Last Admin: 09/04/18 17:08 Dose: 1 mg Zolpidem Tartrate (Ambien) 5 mg PO HS PRN PRN Reason: Insomnia Stop: 10/28/18 12:08 Last Admin: 09/02/18 20:33 Dose: 5 mg General: alert HEENT: NC/AT, PERRLA, EOMI, anicteric sclerae, throat clear Neck: Supple, No JVD, No thyromegaly, +2 carotid pulse wo bruit, No LAD Lungs: CTAB Cardiovascular: Normal S1, Normal S2, without murmur Abdomen: soft, non-tender, non-distended Extremities: clear Neurological: no change Internal Medicine Assmt/Plan - Assessment Assessment: 1.HTN. 2.SEIZURE. 3.POLYARTHRITIS 4.PSYCHOSIS - Plan Plan: CONTINUE ON CURRENT MEDICATION AND DIET. Nutritional Asmnt/Malnutr-PDOC - Dietary Evaluation Malnutrition Findings (Please click <Entered> for more info): Nutritional Asmnt/Malnutrition Start: 09/04/18 15: 00 Text: Status: Complete Freq: Protocol: Document 09/04/18 15:02 [facility]ENG (Rec: 09/04/18 15:04 [email or web address]) Nutritional Asmnt/Malnutrition Patient General Information Nutritional Screening Moderate Risk Diagnosis psychosis NOS Pertinent Medical Hx/Surgical Hx HTN, arthritis, anxiety, impulse diorder, depression, schizophrenia, extrapyramidal symptoms, bipolar Subjective Information Pt seen walking in hallway, confused, hyper verbal. Per EMR< PO intake 100%. Current Diet Order/ Nutrition Support regular Pertinent Medications colace, theragran Pertinent Labs no nutrition related labs Nutritional Hx/Data Height 1.52 m Height (Calculated Centimeters) 152.4 Current Weight (lbs) 58.967 kg Weight (Calculated Kilograms) 59.0 Weight (Calculated Grams) 10294.0 [place] Body Weight 100 Body Mass Index (BMI) 25.4 Weight Status Overweight GI Symptoms GI Symptoms None Last BM 09/03 Difficult in: None Skin Integrity/Comment: dryness, shaan 20 Current %PO Good (75-100%) Estimated Nutritional Goals BEE in Kcals: Using Current wt Calories/Kcals/Kg 23-27 Kcals Calculated 6316-2712 Protein: Using Current wt Protein g/k.8 Protein Calculated 51 Fluid: ml 1426-1674ml (1ml/kcal) Nutritional Problem No current Nutrition Prob Problem N/A Malnutrition Alert Is there a minimum of two criteria No selected? Query Text:Check all the applicable criteria. A minimum of two criteria are recommended for diagnosis of either severe or non-severe malnutrition. Malnutrition Related to Morbid Obesity Malnutrition related to morbid obesity No Intervention/Recommendation Comments 1. Continue with regular diet as ordered. 2. Monitor PO intake, wt, labs and skin integrity 3. F/U as low risk in 7 days Expected Outcomes/Goals Expected Outcomes/Goals 1. PO intake to meet at least 75% of nutritional needs. 2. Wt stability, skin to remain intact, labs to approach WNL.
--- NOTE | 2018-09-04 23:12 | Progress Notes ---
DATE: 09/04/2018 FOLLOWUP PROGRESS NOTE PROGRESS ON THE UNIT: Case discussed with staff of the patient, reviewed records. The patient continues to be confused, unpredictable, impulsive, aggressive towards the staff. She continues to be unpredictable, impulsive, easily agitated, needing redirection. She is sleeping better, eating better. Compliant with the medication, no side effects, no sedation, no nausea, no extrapyramidal symptoms. We will continue to work with the patient in group therapy and milieu therapy, adjust the medication as needed. JOB# [id number]
[2018-09-05] MEDS: NIFEdipine 30 mg ER Tab PO SCH ×2 (09:09→18:08)
[2018-09-05] MEDS: Multivitamin Tab PO SCH (09:09)
[2018-09-05] MEDS: risperiDONE 1 mg/mL 30 mL Bottle PO SCH ×2 (09:10→18:09)
--- NOTE | 2018-09-05 18:37 | Progress Notes ---
DATE: 09/05/2018 SUBJECTIVE: Chart reviewed and the patient interviewed. Also discussed the patient's condition with the staff and reviewed records and labs. The patient continued to be extremely irritable and extremely agitated. The patient also is still uncooperative with her treatment and is still restless and is having severe mood swings. The patient also is interacting minimally with others. She also states feeling hopeless and helpless. Otherwise, the patient is refusing to take any of her medications and in spite of explaining to the patient the importance of taking her medications as she is still refusing to take her medications. ASSESSMENT: The patient is still agitated and psychotic and needs close monitoring and also we need to comply with taking her medications. TREATMENT PLAN: Continue to monitor her behavior and her condition closely. Also, advised the patient to take her psychotropic medications, hopefully, she will start to do so. At the same time, we will continue working on her agitation and aggressive behavior and behavioral modification. JOB# [id number]
[2018-09-05] MEDS: Benztropine 1 MG TAB PO SCH (21:43)
[2018-09-05] MEDS: OLANZapine 5 mg Oral Disintegrating Tab PO SCH (21:44)
--- NOTE | 2018-09-05 23:07 | Internal Medicine Prog Note ---
Internal Medicine Subjective - Subjective Service Date: 09/05/18 Patient seen and examined:: with staff (SHE HAS BEEN AGITATED) Patient is:: awake, verbal, in bed, talking, confused Per staff patient has:: no adverse event Internal Medicine Objective - Results Recent Labs: Laboratory Last Values Urine Source CLEAN C 08/29/18 09:30 Urine Color YELLOW 08/29/18 09:30 Urine Clarity CLEAR (CLEAR) 08/29/18 09:30 Urine pH 6.5 (4.6 - 8.0) 08/29/18 09:30 Ur Specific [place] 1.010 (1.005-1.030) 08/29/18 09:30 Urine Protein NEGATIVE mg/dL (NEGATIVE) 08/29/18 09:30 Urine Glucose (UA) NEGATIVE mg/dL (NEGATIVE) 08/29/18 09:30 Urine Ketones NEGATIVE mg/dL (NEGATIVE) 08/29/18 09:30 Urine Blood TRACE (NEGATIVE) 08/29/18 09:30 Urine Nitrate NEGATIVE (NEGATIVE) 08/29/18 09:30 Urine Bilirubin NEGATIVE (NEGATIVE) 08/29/18 09:30 Urine Urobilinogen 1.0 E.U./dL (0.2 - 1.0) 08/29/18 09:30 Ur Leukocyte Esterase TRACE (NEGATIVE) H 08/29/18 09:30 Urine RBC 0-2 /hpf (0-5) 08/29/18 09:30 Urine WBC 2-5 /hpf (0-5) 08/29/18 09:30 Ur Epithelial Cells OCCASIONAL /lpf (FEW) 08/29/18 09:30 Urine Bacteria FEW /hpf (NONE SEEN) 08/29/18 09:30 - Physical Exam Vitals and I&O: Vital Signs Temp 97.1 F 09/05/18 06:32 Pulse 91 09/05/18 09:09 Resp 19 09/05/18 06:32 BP 143/65 09/05/18 18:08 Pulse Ox 96 09/05/18 06:32 Intake & Output 09/05/18 09/05/18 09/06/18 06:59 18:59 06:59 Intake Total 120 600 Balance 120 600 Intake: Oral 120 600 Other: # Voids 3 3 # Bowel Movements 0 Active Medications: Current Medications Al Hydrox/Mg Hydrox/Simethicone (Maalox) 30 ml PO Q4HR PRN PRN Reason: GI DISTRESS Stop: 10/28/18 12:08 Benztropine Mesylate (Cogentin) 2 mg PO HS [facility] Stop: 10/28/18 20:59 Last Admin: 09/05/18 21:43 Dose: Not Given Carbamazepine (Tegretol) 400 mg PO HS [facility] Stop: 10/28/18 20:59 Last Admin: 09/05/18 21:44 Dose: Not Given Celecoxib (Celebrex) 100 mg PO BID [facility] Stop: 10/28/18 16:59 Last Admin: 09/05/18 18:08 Dose: Not Given Docusate Sodium (Colace) 100 mg PO DAILY [facility] Stop: 10/29/18 08:59 Last Admin: 09/05/18 09:10 Dose: Not Given Lorazepam (Ativan) 0.5 mg PO Q4H PRN; Protocol PRN Reason: Agitation Stop: 10/28/18 16:54 Last Admin: 09/02/18 10:47 Dose: 0.5 mg Magnesium Hydroxide (Milk Of Magnesia) 30 ml PO HS PRN PRN Reason: Constipation Multivitamins/Vitamin C (Theragran) 1 tab PO DAILY [facility] Stop: 10/29/18 08:59 Last Admin: 09/05/18 09:09 Dose: Not Given Nifedipine (Procardia Xl) 60 mg PO BID [facility] Stop: 10/28/18 16:59 Last Admin: 09/05/18 18:08 Dose: Not Given Olanzapine (Zyprexa Zydis) 7.5 mg PO HS [facility]; Protocol Stop: 10/30/18 20:59 Last Admin: 09/05/18 21:44 Dose: Not Given Risperidone (Risperdal) 1 mg PO BID [facility]; Protocol Stop: 11/01/18 08:59 Last Admin: 09/05/18 18:09 Dose: Not Given Zolpidem Tartrate (Ambien) 5 mg PO HS PRN PRN Reason: Insomnia Stop: 10/28/18 12:08 Last Admin: 09/04/18 21:10 Dose: 5 mg General: alert HEENT: NC/AT, PERRLA, EOMI, anicteric sclerae, throat clear Neck: Supple, No JVD, No thyromegaly, +2 carotid pulse wo bruit, No LAD Lungs: CTAB Cardiovascular: Normal S1, Normal S2, without murmur Abdomen: soft, non-tender, non-distended Extremities: clear Neurological: no change Internal Medicine Assmt/Plan - Assessment Assessment: 1.HTN. 2.SEIZURE. 3.POLYARTHRITIS 4.PSYCHOSIS - Plan Plan: CONTINUE ON CURRENT MEDICATION AND DIET. Nutritional Asmnt/Malnutr-PDOC - Dietary Evaluation Malnutrition Findings (Please click <Entered> for more info): Nutritional Asmnt/Malnutrition Start: 09/04/18 15: 00 Text: Status: Complete Freq: Protocol: Document 09/04/18 15:02 LCHENG (Rec: 09/04/18 15:04 [email or web address]) Nutritional Asmnt/Malnutrition Patient General Information Nutritional Screening Moderate Risk Diagnosis psychosis NOS Pertinent Medical Hx/Surgical Hx HTN, arthritis, anxiety, impulse diorder, depression, schizophrenia, extrapyramidal symptoms, bipolar Subjective Information Pt seen walking in hallway, confused, hyper verbal. Per EMR< PO intake 100%. Current Diet Order/ Nutrition Support regular Pertinent Medications colace, theragran Pertinent Labs no nutrition related labs Nutritional Hx/Data Height 1.52 m Height (Calculated Centimeters) 152.4 Current Weight (lbs) 58.967 kg Weight (Calculated Kilograms) 59.0 Weight (Calculated Grams) 56427.0 [place] Body Weight 100 Body Mass Index (BMI) 25.4 Weight Status Overweight GI Symptoms GI Symptoms None Last BM 09/03 Difficult in: None Skin Integrity/Comment: dryness, shaan 20 Current %PO Good (75-100%) Estimated Nutritional Goals BEE in Kcals: Using Current wt Calories/Kcals/Kg 23-27 Kcals Calculated 9188-0019 Protein: Using Current wt Protein g/k.8 Protein Calculated 51 Fluid: ml 1426-1674ml (1ml/kcal) Nutritional Problem No current Nutrition Prob Problem N/A Malnutrition Alert Is there a minimum of two criteria No selected? Query Text:Check all the applicable criteria. A minimum of two criteria are recommended for diagnosis of either severe or non-severe malnutrition. Malnutrition Related to Morbid Obesity Malnutrition related to morbid obesity No Intervention/Recommendation Comments 1. Continue with regular diet as ordered. 2. Monitor PO intake, wt, labs and skin integrity 3. F/U as low risk in 7 days Expected Outcomes/Goals Expected Outcomes/Goals 1. PO intake to meet at least 75% of nutritional needs. 2. Wt stability, skin to remain intact, labs to approach WNL.
--- NOTE | 2018-09-06 06:41 | Progress Notes ---
DATE: 09/06/2018 SUBJECTIVE: Chart reviewed and the patient interviewed. Also discussed the patient's condition with the staff and reviewed records and labs. The patient is still severely agitated and she is still in irritable mood. The patient also is yelling and screaming constantly with difficulty following any of staff directions. She also is aggressive with the staff and she is still hyperverbal and refusing to take medications. The patient also is taking her clothes off in front of other patients and gets aggressive when staff tried to redirect her. Also, refusing to take medications for no apparent reason. ASSESSMENT: The patient is still agitated and confused and needs lots of redirections. TREATMENT PLAN: Continue monitoring her behavior. Also discussed with the patient the importance of taking her medications. Otherwise, we will file for [facility] petition and place the patient on a hold and we will continue to follow up. JOB# [id number]
[2018-09-06] MEDS: Multivitamin Tab PO SCH (09:29)
[2018-09-06] MEDS: NIFEdipine 30 mg ER Tab PO SCH ×2 (09:31→16:28)
[2018-09-06] MEDS: risperiDONE 1 mg/mL 30 mL Bottle PO SCH ×2 (09:37→16:28)
--- NOTE | 2018-09-06 17:46 | Internal Medicine Prog Note ---
Internal Medicine Subjective - Subjective Service Date: 09/06/18 Patient seen and examined:: with staff (SHE IS LESS AGITATED) Patient is:: awake, verbal, in bed, talking, confused Per staff patient has:: no adverse event Internal Medicine Objective - Results Recent Labs: Laboratory Last Values Urine Source CLEAN C 08/29/18 09:30 Urine Color YELLOW 08/29/18 09:30 Urine Clarity CLEAR (CLEAR) 08/29/18 09:30 Urine pH 6.5 (4.6 - 8.0) 08/29/18 09:30 Ur Specific [place] 1.010 (1.005-1.030) 08/29/18 09:30 Urine Protein NEGATIVE mg/dL (NEGATIVE) 08/29/18 09:30 Urine Glucose (UA) NEGATIVE mg/dL (NEGATIVE) 08/29/18 09:30 Urine Ketones NEGATIVE mg/dL (NEGATIVE) 08/29/18 09:30 Urine Blood TRACE (NEGATIVE) 08/29/18 09:30 Urine Nitrate NEGATIVE (NEGATIVE) 08/29/18 09:30 Urine Bilirubin NEGATIVE (NEGATIVE) 08/29/18 09:30 Urine Urobilinogen 1.0 E.U./dL (0.2 - 1.0) 08/29/18 09:30 Ur Leukocyte Esterase TRACE (NEGATIVE) H 08/29/18 09:30 Urine RBC 0-2 /hpf (0-5) 08/29/18 09:30 Urine WBC 2-5 /hpf (0-5) 08/29/18 09:30 Ur Epithelial Cells OCCASIONAL /lpf (FEW) 08/29/18 09:30 Urine Bacteria FEW /hpf (NONE SEEN) 08/29/18 09:30 - Physical Exam Vitals and I&O: Vital Signs Temp 97.2 F 09/06/18 14:00 Pulse 72 09/06/18 16:28 Resp 20 09/06/18 14:00 BP 149/89 09/06/18 16:28 Pulse Ox 97 09/06/18 14:00 Intake & Output 09/05/18 09/06/18 09/06/18 18:59 06:59 18:59 Intake Total 600 Balance 600 Intake: Oral 600 Other: # Voids 3 3 # Bowel Movements 0 Active Medications: Current Medications Al Hydrox/Mg Hydrox/Simethicone (Maalox) 30 ml PO Q4HR PRN PRN Reason: GI DISTRESS Stop: 10/28/18 12:08 Benztropine Mesylate (Cogentin) 2 mg PO HS [facility] Stop: 10/28/18 20:59 Last Admin: 09/05/18 21:43 Dose: Not Given Carbamazepine (Tegretol) 400 mg PO HS [facility] Stop: 10/28/18 20:59 Last Admin: 09/05/18 21:44 Dose: Not Given Celecoxib (Celebrex) 100 mg PO BID [facility] Stop: 10/28/18 16:59 Last Admin: 09/06/18 16:27 Dose: 100 mg Docusate Sodium (Colace) 100 mg PO DAILY [facility] Stop: 10/29/18 08:59 Last Admin: 09/06/18 09:31 Dose: 100 mg Lorazepam (Ativan) 0.5 mg PO Q4H PRN; Protocol PRN Reason: Agitation Stop: 10/28/18 16:54 Last Admin: 09/02/18 10:47 Dose: 0.5 mg Magnesium Hydroxide (Milk Of Magnesia) 30 ml PO HS PRN PRN Reason: Constipation Multivitamins/Vitamin C (Theragran) 1 tab PO DAILY [facility] Stop: 10/29/18 08:59 Last Admin: 09/06/18 09:29 Dose: 1 tab Nifedipine (Procardia Xl) 60 mg PO BID [facility] Stop: 10/28/18 16:59 Last Admin: 09/06/18 16:28 Dose: 60 mg Olanzapine (Zyprexa Zydis) 7.5 mg PO HS [facility]; Protocol Stop: 10/30/18 20:59 Last Admin: 09/05/18 21:44 Dose: Not Given Risperidone (Risperdal) 1 mg PO BID [facility]; Protocol Stop: 11/01/18 08:59 Last Admin: 09/06/18 16:28 Dose: 1 mg Zolpidem Tartrate (Ambien) 5 mg PO HS PRN PRN Reason: Insomnia Stop: 10/28/18 12:08 Last Admin: 09/04/18 21:10 Dose: 5 mg General: alert HEENT: NC/AT, PERRLA, EOMI, anicteric sclerae, throat clear Neck: Supple, No JVD, No thyromegaly, +2 carotid pulse wo bruit, No LAD Lungs: CTAB Cardiovascular: Normal S1, Normal S2, without murmur Abdomen: soft, non-tender, non-distended Extremities: clear Neurological: no change Internal Medicine Assmt/Plan - Assessment Assessment: 1.HTN. 2.SEIZURE. 3.POLYARTHRITIS 4.PSYCHOSIS - Plan Plan: CONTINUE ON CURRENT MEDICATION AND DIET. Nutritional Asmnt/Malnutr-PDOC - Dietary Evaluation Malnutrition Findings (Please click <Entered> for more info): Nutritional Asmnt/Malnutrition Start: 09/04/18 15: 00 Text: Status: Complete Freq: Protocol: Document 09/04/18 15:02 LCHENG (Rec: 09/04/18 15:04 [email or web address]) Nutritional Asmnt/Malnutrition Patient General Information Nutritional Screening Moderate Risk Diagnosis psychosis NOS Pertinent Medical Hx/Surgical Hx HTN, arthritis, anxiety, impulse diorder, depression, schizophrenia, extrapyramidal symptoms, bipolar Subjective Information Pt seen walking in hallway, confused, hyper verbal. Per EMR< PO intake 100%. Current Diet Order/ Nutrition Support regular Pertinent Medications colace, theragran Pertinent Labs no nutrition related labs Nutritional Hx/Data Height 1.52 m Height (Calculated Centimeters) 152.4 Current Weight (lbs) 58.967 kg Weight (Calculated Kilograms) 59.0 Weight (Calculated Grams) 59970.0 [place] Body Weight 100 Body Mass Index (BMI) 25.4 Weight Status Overweight GI Symptoms GI Symptoms None Last BM 09/03 Difficult in: None Skin Integrity/Comment: dryness, shaan 20 Current %PO Good (75-100%) Estimated Nutritional Goals BEE in Kcals: Using Current wt Calories/Kcals/Kg 23-27 Kcals Calculated 4285-0328 Protein: Using Current wt Protein g/k.8 Protein Calculated 51 Fluid: ml 1426-1674ml (1ml/kcal) Nutritional Problem No current Nutrition Prob Problem N/A Malnutrition Alert Is there a minimum of two criteria No selected? Query Text:Check all the applicable criteria. A minimum of two criteria are recommended for diagnosis of either severe or non-severe malnutrition. Malnutrition Related to Morbid Obesity Malnutrition related to morbid obesity No Intervention/Recommendation Comments 1. Continue with regular diet as ordered. 2. Monitor PO intake, wt, labs and skin integrity 3. F/U as low risk in 7 days Expected Outcomes/Goals Expected Outcomes/Goals 1. PO intake to meet at least 75% of nutritional needs. 2. Wt stability, skin to remain intact, labs to approach WNL.
[2018-09-06] MEDS: OLANZapine 5 mg Oral Disintegrating Tab PO SCH (20:51)
[2018-09-06] MEDS: Benztropine 1 MG TAB PO SCH (20:52)
[2018-09-07] MEDS: NIFEdipine 30 mg ER Tab PO SCH ×2 (09:14→17:59)
[2018-09-07] MEDS: Multivitamin Tab PO SCH (09:15)
[2018-09-07] MEDS: risperiDONE 1 mg/mL 30 mL Bottle PO SCH ×2 (09:15→17:59)
--- NOTE | 2018-09-07 18:56 | General Progress Note ---
Subjective - Review of Systems Service Date: 09/07/18 Subjective: RESTING COMFORTABLY NO DISTRESS Objective - Results Recent Labs: Laboratory Last Values Urine Source CLEAN C 08/29/18 09:30 Urine Color YELLOW 08/29/18 09:30 Urine Clarity CLEAR (CLEAR) 08/29/18 09:30 Urine pH 6.5 (4.6 - 8.0) 08/29/18 09:30 Ur Specific [place] 1.010 (1.005-1.030) 08/29/18 09:30 Urine Protein NEGATIVE mg/dL (NEGATIVE) 08/29/18 09:30 Urine Glucose (UA) NEGATIVE mg/dL (NEGATIVE) 08/29/18 09:30 Urine Ketones NEGATIVE mg/dL (NEGATIVE) 08/29/18 09:30 Urine Blood TRACE (NEGATIVE) 08/29/18 09:30 Urine Nitrate NEGATIVE (NEGATIVE) 08/29/18 09:30 Urine Bilirubin NEGATIVE (NEGATIVE) 08/29/18 09:30 Urine Urobilinogen 1.0 E.U./dL (0.2 - 1.0) 08/29/18 09:30 Ur Leukocyte Esterase TRACE (NEGATIVE) H 08/29/18 09:30 Urine RBC 0-2 /hpf (0-5) 08/29/18 09:30 Urine WBC 2-5 /hpf (0-5) 08/29/18 09:30 Ur Epithelial Cells OCCASIONAL /lpf (FEW) 08/29/18 09:30 Urine Bacteria FEW /hpf (NONE SEEN) 08/29/18 09:30 - Physical Exam Vitals and I&O: Vital Signs Temp 97.8 F 09/07/18 15:03 Pulse 109 09/07/18 15:03 Resp 20 09/07/18 15:03 BP 151/82 09/07/18 15:03 Pulse Ox 96 09/07/18 15:03 Intake & Output 09/06/18 09/07/18 09/07/18 18:59 06:59 18:59 Intake Total 960 480 900 Balance 960 480 900 Intake: Oral 960 480 900 Other: # Voids 3 2 4 # Bowel Movements 1 3 Active Medications: Current Medications Al Hydrox/Mg Hydrox/Simethicone (Maalox) 30 ml PO Q4HR PRN PRN Reason: GI DISTRESS Stop: 10/28/18 12:08 Benztropine Mesylate (Cogentin) 2 mg PO HS [facility] Stop: 10/28/18 20:59 Last Admin: 09/06/18 20:52 Dose: 2 mg Carbamazepine (Tegretol) 400 mg PO HS [facility] Stop: 10/28/18 20:59 Last Admin: 09/06/18 20:50 Dose: 400 mg Celecoxib (Celebrex) 100 mg PO BID [facility] Stop: 10/28/18 16:59 Last Admin: 09/07/18 17:59 Dose: Not Given Docusate Sodium (Colace) 100 mg PO DAILY [facility] Stop: 10/29/18 08:59 Last Admin: 09/07/18 09:15 Dose: 100 mg Lorazepam (Ativan) 0.5 mg PO Q4H PRN; Protocol PRN Reason: Agitation Stop: 10/28/18 16:54 Last Admin: 09/02/18 10:47 Dose: 0.5 mg Magnesium Hydroxide (Milk Of Magnesia) 30 ml PO HS PRN PRN Reason: Constipation Multivitamins/Vitamin C (Theragran) 1 tab PO DAILY [facility] Stop: 10/29/18 08:59 Last Admin: 09/07/18 09:15 Dose: 1 tab Nifedipine (Procardia Xl) 60 mg PO BID [facility] Stop: 10/28/18 16:59 Last Admin: 09/07/18 17:59 Dose: Not Given Olanzapine (Zyprexa Zydis) 7.5 mg PO HS [facility]; Protocol Stop: 10/30/18 20:59 Last Admin: 09/06/18 20:51 Dose: 7.5 mg Risperidone (Risperdal) 1 mg PO BID [facility]; Protocol Stop: 11/01/18 08:59 Last Admin: 09/07/18 17:59 Dose: Not Given Zolpidem Tartrate (Ambien) 5 mg PO HS PRN PRN Reason: Insomnia Stop: 10/28/18 12:08 Last Admin: 09/06/18 20:52 Dose: 5 mg General: No acute distress HEENT: Atraumatic, PERRLA Neck: Supple, JVD Cardiovascular: Regular rate, Normal S1, Normal S2 Lungs: Clear to auscultation Abdomen: Bowel sounds, Soft Assessment/Plan - Assessment Assessment: 1.HTN. 2.SEIZURE. 3.POLYARTHRITIS 4.PSYCHOSIS - Plan Plan: CONTINUE CURRENT TREATMENT Nutritional Asmnt/Malnutr-PDOC - Dietary Evaluation Malnutrition Findings (Please click <Entered> for more info): Nutritional Asmnt/Malnutrition Start: 09/04/18 15: 00 Text: Status: Complete Freq: Protocol: Document 09/04/18 15:02 NATALIYABRUCEG (Rec: 09/04/18 15:04 [email or web address]) Nutritional Asmnt/Malnutrition Patient General Information Nutritional Screening Moderate Risk Diagnosis psychosis NOS Pertinent Medical Hx/Surgical Hx HTN, arthritis, anxiety, impulse diorder, depression, schizophrenia, extrapyramidal symptoms, bipolar Subjective Information Pt seen walking in hallway, confused, hyper verbal. Per EMR< PO intake 100%. Current Diet Order/ Nutrition Support regular Pertinent Medications colace, theragran Pertinent Labs no nutrition related labs Nutritional Hx/Data Height 1.52 m Height (Calculated Centimeters) 152.4 Current Weight (lbs) 58.967 kg Weight (Calculated Kilograms) 59.0 Weight (Calculated Grams) 65004.0 [place] Body Weight 100 Body Mass Index (BMI) 25.4 Weight Status Overweight GI Symptoms GI Symptoms None Last BM 09/03 Difficult in: None Skin Integrity/Comment: dryness, shaan 20 Current %PO Good (75-100%) Estimated Nutritional Goals BEE in Kcals: Using Current wt Calories/Kcals/Kg 23-27 Kcals Calculated 4424-3909 Protein: Using Current wt Protein g/k.8 Protein Calculated 51 Fluid: ml 1426-1674ml (1ml/kcal) Nutritional Problem No current Nutrition Prob Problem N/A Malnutrition Alert Is there a minimum of two criteria No selected? Query Text:Check all the applicable criteria. A minimum of two criteria are recommended for diagnosis of either severe or non-severe malnutrition. Malnutrition Related to Morbid Obesity Malnutrition related to morbid obesity No Intervention/Recommendation Comments 1. Continue with regular diet as ordered. 2. Monitor PO intake, wt, labs and skin integrity 3. F/U as low risk in 7 days Expected Outcomes/Goals Expected Outcomes/Goals 1. PO intake to meet at least 75% of nutritional needs. 2. Wt stability, skin to remain intact, labs to approach WNL.
--- NOTE | 2018-09-07 19:47 | Progress Notes ---
DATE: 09/07/2018 DATE OF SERVICE: 09/07/2018 SUBJECTIVE: Chart was reviewed and the patient interviewed. Also discussed the patient's condition with the staff and reviewed records and labs. The patient continued to be extremely irritable and extremely agitated. The patient also is making gestures with her hands and still has disorganized thoughts and difficulty to express herself or express her needs. The patient also is easily agitated and unable to follow any of staff directions. She also is angry and in irritable mood, especially when staff tries to help her with her ADLs. The patient also is unable to follow directions and the patient had not been able to interact or cooperate because of agitation and confusion. Also, during interview, the patient has flat affect and seems to be confused. ASSESSMENT: The patient is still psychotic and agitated and needs close monitoring and also encouragement to take her medications. TREATMENT PLAN: Continue working on her confusion and agitation and poor impulse control and also working on her compliance with taking medications. [facility]# [id number]
[2018-09-07] MEDS: Benztropine 1 MG TAB PO SCH (20:57)
[2018-09-07] MEDS: OLANZapine 5 mg Oral Disintegrating Tab PO SCH (20:58)
[2018-09-08] MEDS: Multivitamin Tab PO SCH (08:47)
[2018-09-08] MEDS: NIFEdipine 30 mg ER Tab PO SCH ×2 (08:48→17:06)
[2018-09-08] MEDS: risperiDONE 1 mg/mL 30 mL Bottle PO SCH ×2 (08:48→17:06)
[2018-09-08] MEDS ORDERED: Haloperidol Lactate 5 mg/mL 1mL Vial IM PRN (09:22)
[2018-09-08] MEDS ORDERED: Haloperidol Lactate 5 mg/mL 1mL Vial IM ONE (09:33)
[2018-09-08] MEDS ORDERED: Haloperidol Lactate 5 mg/mL 1mL Vial ONE (09:40)
--- NOTE | 2018-09-08 18:56 | General Progress Note ---
Subjective - Review of Systems Service Date: 09/08/18 Subjective: RESTING COMFORTABLY NO DISTRESS Objective - Results Recent Labs: Laboratory Last Values Urine Source CLEAN C 08/29/18 09:30 Urine Color YELLOW 08/29/18 09:30 Urine Clarity CLEAR (CLEAR) 08/29/18 09:30 Urine pH 6.5 (4.6 - 8.0) 08/29/18 09:30 Ur Specific [place] 1.010 (1.005-1.030) 08/29/18 09:30 Urine Protein NEGATIVE mg/dL (NEGATIVE) 08/29/18 09:30 Urine Glucose (UA) NEGATIVE mg/dL (NEGATIVE) 08/29/18 09:30 Urine Ketones NEGATIVE mg/dL (NEGATIVE) 08/29/18 09:30 Urine Blood TRACE (NEGATIVE) 08/29/18 09:30 Urine Nitrate NEGATIVE (NEGATIVE) 08/29/18 09:30 Urine Bilirubin NEGATIVE (NEGATIVE) 08/29/18 09:30 Urine Urobilinogen 1.0 E.U./dL (0.2 - 1.0) 08/29/18 09:30 Ur Leukocyte Esterase TRACE (NEGATIVE) H 08/29/18 09:30 Urine RBC 0-2 /hpf (0-5) 08/29/18 09:30 Urine WBC 2-5 /hpf (0-5) 08/29/18 09:30 Ur Epithelial Cells OCCASIONAL /lpf (FEW) 08/29/18 09:30 Urine Bacteria FEW /hpf (NONE SEEN) 08/29/18 09:30 - Physical Exam Vitals and I&O: Vital Signs Temp 98.9 F 09/07/18 22:04 Pulse 79 09/08/18 08:48 Resp 20 09/08/18 14:00 BP 132/78 09/08/18 08:48 Pulse Ox 97 09/07/18 22:04 Intake & Output 09/07/18 09/08/18 09/08/18 18:59 06:59 18:59 Intake Total 900 360 Balance 900 360 Intake: Oral 900 360 Other: # Voids 4 2 # Bowel Movements 3 1 Active Medications: Current Medications Al Hydrox/Mg Hydrox/Simethicone (Maalox) 30 ml PO Q4HR PRN PRN Reason: GI DISTRESS Stop: 10/28/18 12:08 Benztropine Mesylate (Cogentin) 2 mg PO HS [facility] Stop: 10/28/18 20:59 Last Admin: 09/07/18 20:57 Dose: 2 mg Carbamazepine (Tegretol) 400 mg PO HS [facility] Stop: 10/28/18 20:59 Last Admin: 09/07/18 20:57 Dose: 400 mg Celecoxib (Celebrex) 100 mg PO BID [facility] Stop: 10/28/18 16:59 Last Admin: 09/08/18 17:06 Dose: Not Given Docusate Sodium (Colace) 100 mg PO DAILY [facility] Stop: 10/29/18 08:59 Last Admin: 09/08/18 08:47 Dose: 100 mg Lorazepam (Ativan) 0.5 mg PO Q4H PRN; Protocol PRN Reason: Agitation Stop: 10/28/18 16:54 Last Admin: 09/08/18 08:48 Dose: 0.5 mg Magnesium Hydroxide (Milk Of Magnesia) 30 ml PO HS PRN PRN Reason: Constipation Multivitamins/Vitamin C (Theragran) 1 tab PO DAILY [facility] Stop: 10/29/18 08:59 Last Admin: 09/08/18 08:47 Dose: 1 tab Nifedipine (Procardia Xl) 60 mg PO BID [facility] Stop: 10/28/18 16:59 Last Admin: 09/08/18 17:06 Dose: Not Given Olanzapine (Zyprexa Zydis) 7.5 mg PO HS [facility]; Protocol Stop: 10/30/18 20:59 Last Admin: 09/07/18 20:58 Dose: 7.5 mg Risperidone (Risperdal) 1 mg PO BID [facility]; Protocol Stop: 11/01/18 08:59 Last Admin: 09/08/18 17:06 Dose: Not Given Zolpidem Tartrate (Ambien) 5 mg PO HS PRN PRN Reason: Insomnia Stop: 10/28/18 12:08 Last Admin: 09/07/18 20:57 Dose: 5 mg General: No acute distress HEENT: Atraumatic, PERRLA Neck: Supple, JVD Cardiovascular: Regular rate, Normal S1, Normal S2 Lungs: Clear to auscultation Abdomen: Bowel sounds, Soft Assessment/Plan - Assessment Assessment: 1.HTN. 2.SEIZURE. 3.POLYARTHRITIS 4.PSYCHOSIS - Plan Plan: CONTINUE CURRENT TREATMENT Nutritional Asmnt/Malnutr-PDOC - Dietary Evaluation Malnutrition Findings (Please click <Entered> for more info): Nutritional Asmnt/Malnutrition Start: 09/04/18 15: 00 Text: Status: Complete Freq: Protocol: Document 09/04/18 15:02 LCBRUCEG (Rec: 09/04/18 15:04 [email or web address]) Nutritional Asmnt/Malnutrition Patient General Information Nutritional Screening Moderate Risk Diagnosis psychosis NOS Pertinent Medical Hx/Surgical Hx HTN, arthritis, anxiety, impulse diorder, depression, schizophrenia, extrapyramidal symptoms, bipolar Subjective Information Pt seen walking in hallway, confused, hyper verbal. Per EMR< PO intake 100%. Current Diet Order/ Nutrition Support regular Pertinent Medications colace, theragran Pertinent Labs no nutrition related labs Nutritional Hx/Data Height 1.52 m Height (Calculated Centimeters) 152.4 Current Weight (lbs) 58.967 kg Weight (Calculated Kilograms) 59.0 Weight (Calculated Grams) 09191.0 [place] Body Weight 100 Body Mass Index (BMI) 25.4 Weight Status Overweight GI Symptoms GI Symptoms None Last BM 09/03 Difficult in: None Skin Integrity/Comment: dryness, shaan 20 Current %PO Good (75-100%) Estimated Nutritional Goals BEE in Kcals: Using Current wt Calories/Kcals/Kg 23-27 Kcals Calculated 8310-9153 Protein: Using Current wt Protein g/k.8 Protein Calculated 51 Fluid: ml 1426-1674ml (1ml/kcal) Nutritional Problem No current Nutrition Prob Problem N/A Malnutrition Alert Is there a minimum of two criteria No selected? Query Text:Check all the applicable criteria. A minimum of two criteria are recommended for diagnosis of either severe or non-severe malnutrition. Malnutrition Related to Morbid Obesity Malnutrition related to morbid obesity No Intervention/Recommendation Comments 1. Continue with regular diet as ordered. 2. Monitor PO intake, wt, labs and skin integrity 3. F/U as low risk in 7 days Expected Outcomes/Goals Expected Outcomes/Goals 1. PO intake to meet at least 75% of nutritional needs. 2. Wt stability, skin to remain intact, labs to approach WNL.
[2018-09-08] MEDS: Benztropine 1 MG TAB PO SCH (20:21)
[2018-09-08] MEDS: OLANZapine 5 mg Oral Disintegrating Tab PO SCH (20:22)
[2018-09-09] MEDS ORDERED: Haloperidol Lactate 5 mg/mL 1mL Vial IM STA (07:38)
[2018-09-09] MEDS ORDERED: Haloperidol Lactate 5 mg/mL 1mL Vial ONE (07:39)
[2018-09-09] MEDS: risperiDONE 1 mg/mL 30 mL Bottle PO SCH ×2 (08:10→16:38)
[2018-09-09] MEDS: Multivitamin Tab PO SCH (08:10)
[2018-09-09] MEDS: NIFEdipine 30 mg ER Tab PO SCH ×2 (08:10→17:01)
--- NOTE | 2018-09-09 10:03 | Progress Notes ---
DATE: 09/08/2018 Chart reviewed and the patient interviewed. Also discussed the patient's condition with the staff and reviewed records and labs. The patient is still preoccupied and is still agitated and making gestures with her hands to other patients and nurses. The patient also was refusing medications, but last night she did ask herself to take her medications, which make her treatment better at night, but this morning, the patient is awake, again arguing and aggressive and agitated and demanding. Discussed importance of taking her medications and hopefully she will take morning medications and continues to take her medications. Otherwise, the patient still needs close monitoring and followup. [facility]# [id number]
--- NOTE | 2018-09-09 14:52 | General Progress Note ---
Subjective - Review of Systems Service Date: 09/09/18 Subjective: RESTING COMFORTABLY NO DISTRESS Objective - Results Recent Labs: Laboratory Last Values Urine Source CLEAN C 08/29/18 09:30 Urine Color YELLOW 08/29/18 09:30 Urine Clarity CLEAR (CLEAR) 08/29/18 09:30 Urine pH 6.5 (4.6 - 8.0) 08/29/18 09:30 Ur Specific [place] 1.010 (1.005-1.030) 08/29/18 09:30 Urine Protein NEGATIVE mg/dL (NEGATIVE) 08/29/18 09:30 Urine Glucose (UA) NEGATIVE mg/dL (NEGATIVE) 08/29/18 09:30 Urine Ketones NEGATIVE mg/dL (NEGATIVE) 08/29/18 09:30 Urine Blood TRACE (NEGATIVE) 08/29/18 09:30 Urine Nitrate NEGATIVE (NEGATIVE) 08/29/18 09:30 Urine Bilirubin NEGATIVE (NEGATIVE) 08/29/18 09:30 Urine Urobilinogen 1.0 E.U./dL (0.2 - 1.0) 08/29/18 09:30 Ur Leukocyte Esterase TRACE (NEGATIVE) H 08/29/18 09:30 Urine RBC 0-2 /hpf (0-5) 08/29/18 09:30 Urine WBC 2-5 /hpf (0-5) 08/29/18 09:30 Ur Epithelial Cells OCCASIONAL /lpf (FEW) 08/29/18 09:30 Urine Bacteria FEW /hpf (NONE SEEN) 08/29/18 09:30 - Physical Exam Vitals and I&O: Vital Signs Temp 0 F 09/09/18 06:11 Pulse 79 09/08/18 08:48 Resp 20 09/09/18 13:13 BP 132/78 09/08/18 08:48 Pulse Ox 97 09/07/18 22:04 Intake & Output 09/08/18 09/09/18 09/09/18 18:59 06:59 18:59 Intake Total 120 Balance 120 Intake: Oral 120 Other: # Voids 3 # Bowel Movements 0 Active Medications: Current Medications Al Hydrox/Mg Hydrox/Simethicone (Maalox) 30 ml PO Q4HR PRN PRN Reason: GI DISTRESS Stop: 10/28/18 12:08 Benztropine Mesylate (Cogentin) 2 mg PO HS [facility] Stop: 10/28/18 20:59 Last Admin: 09/08/18 20:21 Dose: 2 mg Carbamazepine (Tegretol) 400 mg PO HS [facility] Stop: 10/28/18 20:59 Last Admin: 09/08/18 20:21 Dose: 400 mg Celecoxib (Celebrex) 100 mg PO BID [facility] Stop: 10/28/18 16:59 Last Admin: 09/09/18 08:09 Dose: Not Given Docusate Sodium (Colace) 100 mg PO DAILY [facility] Stop: 10/29/18 08:59 Last Admin: 09/09/18 08:09 Dose: Not Given Lorazepam (Ativan) 0.5 mg PO Q4H PRN; Protocol PRN Reason: Agitation Stop: 10/28/18 16:54 Last Admin: 09/08/18 08:48 Dose: 0.5 mg Magnesium Hydroxide (Milk Of Magnesia) 30 ml PO HS PRN PRN Reason: Constipation Multivitamins/Vitamin C (Theragran) 1 tab PO DAILY [facility] Stop: 10/29/18 08:59 Last Admin: 09/09/18 08:10 Dose: Not Given Nifedipine (Procardia Xl) 60 mg PO BID [facility] Stop: 10/28/18 16:59 Last Admin: 09/09/18 08:10 Dose: Not Given Olanzapine (Zyprexa Zydis) 7.5 mg PO HS [facility]; Protocol Stop: 10/30/18 20:59 Last Admin: 09/08/18 20:22 Dose: 7.5 mg Risperidone (Risperdal) 1 mg PO BID [facility]; Protocol Stop: 11/01/18 08:59 Last Admin: 09/09/18 08:10 Dose: Not Given Zolpidem Tartrate (Ambien) 5 mg PO HS PRN PRN Reason: Insomnia Stop: 10/28/18 12:08 Last Admin: 09/08/18 20:22 Dose: 5 mg General: No acute distress HEENT: Atraumatic, PERRLA Neck: Supple, JVD Cardiovascular: Regular rate, Normal S1, Normal S2 Lungs: Clear to auscultation Abdomen: Bowel sounds, Soft Assessment/Plan - Assessment Assessment: 1.HTN. 2.SEIZURE. 3.POLYARTHRITIS 4.PSYCHOSIS - Plan Plan: CONTINUE CURRENT TREATMENT Nutritional Asmnt/Malnutr-PDOC - Dietary Evaluation Malnutrition Findings (Please click <Entered> for more info): Nutritional Asmnt/Malnutrition Start: 09/04/18 15: 00 Text: Status: Complete Freq: Protocol: Document 09/04/18 15:02 LCBRUCEG (Rec: 09/04/18 15:04 LCJERRY [email or web address]) Nutritional Asmnt/Malnutrition Patient General Information Nutritional Screening Moderate Risk Diagnosis psychosis NOS Pertinent Medical Hx/Surgical Hx HTN, arthritis, anxiety, impulse diorder, depression, schizophrenia, extrapyramidal symptoms, bipolar Subjective Information Pt seen walking in hallway, confused, hyper verbal. Per EMR< PO intake 100%. Current Diet Order/ Nutrition Support regular Pertinent Medications colace, theragran Pertinent Labs no nutrition related labs Nutritional Hx/Data Height 1.52 m Height (Calculated Centimeters) 152.4 Current Weight (lbs) 58.967 kg Weight (Calculated Kilograms) 59.0 Weight (Calculated Grams) 41935.0 [place] Body Weight 100 Body Mass Index (BMI) 25.4 Weight Status Overweight GI Symptoms GI Symptoms None Last BM 09/03 Difficult in: None Skin Integrity/Comment: angel shaan 20 Current %PO Good (75-100%) Estimated Nutritional Goals BEE in Kcals: Using Current wt Calories/Kcals/Kg 23-27 Kcals Calculated 7984-0563 Protein: Using Current wt Protein g/k.8 Protein Calculated 51 Fluid: ml 1426-1674ml (1ml/kcal) Nutritional Problem No current Nutrition Prob Problem N/A Malnutrition Alert Is there a minimum of two criteria No selected? Query Text:Check all the applicable criteria. A minimum of two criteria are recommended for diagnosis of either severe or non-severe malnutrition. Malnutrition Related to Morbid Obesity Malnutrition related to morbid obesity No Intervention/Recommendation Comments 1. Continue with regular diet as ordered. 2. Monitor PO intake, wt, labs and skin integrity 3. F/U as low risk in 7 days Expected Outcomes/Goals Expected Outcomes/Goals 1. PO intake to meet at least 75% of nutritional needs. 2. Wt stability, skin to remain intact, labs to approach WNL.
[2018-09-09] MEDS: OLANZapine 5 mg Oral Disintegrating Tab PO SCH (21:01)
[2018-09-09] MEDS: Benztropine 1 MG TAB PO SCH (21:01)
--- NOTE | 2018-09-10 00:28 | Progress Notes ---
DATE: 09/09/2018 SUBJECTIVE: Chart reviewed and the patient interviewed. Also discussed the patient's condition with the staff and reviewed records and labs. The patient moved to the front room. Seems to be slightly calmer than before and she is less irritable and less agitated. The patient also did take her medications yesterday. She also seems to be less angry and less agitated, but still have episodes of yelling and screaming. She also still needs lots of redirections. Otherwise, no side effects of medications. ASSESSMENT: The patient is less irritable and less agitated, but still psychotic. TREATMENT PLAN: Continue to monitor behavior and condition closely. Continue adjusting psychotropic medications and working on behavioral modification. [facility]# [id number]
[2018-09-10] MEDS: NIFEdipine 30 mg ER Tab PO SCH ×2 (08:22→16:07)
[2018-09-10] MEDS: Multivitamin Tab PO SCH (08:22)
[2018-09-10] MEDS: risperiDONE 1 mg/mL 30 mL Bottle PO SCH ×2 (08:23→16:07)
[2018-09-10] MEDS ORDERED: Haloperidol Lactate 5 mg/mL 1mL Vial IM STA (13:58)
[2018-09-10] MEDS ORDERED: Haloperidol Lactate 5 mg/mL 1mL Vial ONE (14:03)
[2018-09-10] MEDS: Benztropine 1 MG TAB PO SCH (21:11)
[2018-09-10] MEDS: OLANZapine 5 mg Oral Disintegrating Tab PO SCH (21:12)
--- NOTE | 2018-09-10 23:45 | Internal Medicine Prog Note ---
Internal Medicine Subjective - Subjective Service Date: 09/10/18 Patient seen and examined:: without staff (SHE FEELS BETTER) Patient is:: awake, verbal, in bed, talking, confused Per staff patient has:: no adverse event Internal Medicine Objective - Results Recent Labs: Laboratory Last Values Urine Source CLEAN C 08/29/18 09:30 Urine Color YELLOW 08/29/18 09:30 Urine Clarity CLEAR (CLEAR) 08/29/18 09:30 Urine pH 6.5 (4.6 - 8.0) 08/29/18 09:30 Ur Specific [place] 1.010 (1.005-1.030) 08/29/18 09:30 Urine Protein NEGATIVE mg/dL (NEGATIVE) 08/29/18 09:30 Urine Glucose (UA) NEGATIVE mg/dL (NEGATIVE) 08/29/18 09:30 Urine Ketones NEGATIVE mg/dL (NEGATIVE) 08/29/18 09:30 Urine Blood TRACE (NEGATIVE) 08/29/18 09:30 Urine Nitrate NEGATIVE (NEGATIVE) 08/29/18 09:30 Urine Bilirubin NEGATIVE (NEGATIVE) 08/29/18 09:30 Urine Urobilinogen 1.0 E.U./dL (0.2 - 1.0) 08/29/18 09:30 Ur Leukocyte Esterase TRACE (NEGATIVE) H 08/29/18 09:30 Urine RBC 0-2 /hpf (0-5) 08/29/18 09:30 Urine WBC 2-5 /hpf (0-5) 08/29/18 09:30 Ur Epithelial Cells OCCASIONAL /lpf (FEW) 08/29/18 09:30 Urine Bacteria FEW /hpf (NONE SEEN) 08/29/18 09:30 - Physical Exam Vitals and I&O: Vital Signs Temp 0 F 09/10/18 19:52 Pulse 95 09/10/18 08:22 Resp 20 09/10/18 20:00 BP 160/70 09/10/18 08:22 Pulse Ox 99 09/09/18 14:00 Intake & Output 09/10/18 09/10/18 09/11/18 06:59 18:59 06:59 Intake Total 120 700 0 Output Total 1 Balance 119 700 0 Intake: Oral 120 700 0 Output: Urine/Stool Mix 1 Other: # Voids 3 3 3 # Bowel Movements 0 0 0 Active Medications: Current Medications Al Hydrox/Mg Hydrox/Simethicone (Maalox) 30 ml PO Q4HR PRN PRN Reason: GI DISTRESS Stop: 10/28/18 12:08 Benztropine Mesylate (Cogentin) 2 mg PO HS [facility] Stop: 10/28/18 20:59 Last Admin: 09/10/18 21:11 Dose: Not Given Carbamazepine (Tegretol) 400 mg PO HS [facility] Stop: 10/28/18 20:59 Last Admin: 09/10/18 21:11 Dose: Not Given Celecoxib (Celebrex) 100 mg PO BID [facility] Stop: 10/28/18 16:59 Last Admin: 09/10/18 16:07 Dose: Not Given Docusate Sodium (Colace) 100 mg PO DAILY [facility] Stop: 10/29/18 08:59 Last Admin: 09/10/18 08:22 Dose: Not Given Lorazepam (Ativan) 0.5 mg PO Q4H PRN; Protocol PRN Reason: Agitation Stop: 10/28/18 16:54 Last Admin: 09/09/18 21:03 Dose: 0.5 mg Magnesium Hydroxide (Milk Of Magnesia) 30 ml PO HS PRN PRN Reason: Constipation Multivitamins/Vitamin C (Theragran) 1 tab PO DAILY [facility] Stop: 10/29/18 08:59 Last Admin: 09/10/18 08:22 Dose: Not Given Nifedipine (Procardia Xl) 60 mg PO BID [facility] Stop: 10/28/18 16:59 Last Admin: 09/10/18 16:07 Dose: Not Given Olanzapine (Zyprexa Zydis) 7.5 mg PO HS [facility]; Protocol Stop: 10/30/18 20:59 Last Admin: 09/10/18 21:12 Dose: Not Given Risperidone (Risperdal) 1 mg PO BID [facility]; Protocol Stop: 11/01/18 08:59 Last Admin: 09/10/18 16:07 Dose: Not Given Zolpidem Tartrate (Ambien) 5 mg PO HS PRN PRN Reason: Insomnia Stop: 10/28/18 12:08 Last Admin: 09/08/18 20:22 Dose: 5 mg General: alert HEENT: NC/AT, PERRLA, EOMI, anicteric sclerae, throat clear Neck: Supple, No JVD, No thyromegaly, +2 carotid pulse wo bruit, No LAD Lungs: CTAB Cardiovascular: Normal S1, Normal S2, without murmur Abdomen: soft, non-tender, non-distended Extremities: clear Neurological: no change Internal Medicine Assmt/Plan - Assessment Assessment: 1.HTN. 2.SEIZURE. 3.POLYARTHRITIS 4.PSYCHOSIS - Plan Plan: CONTINUE ON CURRENT MEDICATION AND DIET. Nutritional Asmnt/Malnutr-PDOC - Dietary Evaluation Malnutrition Findings (Please click <Entered> for more info): Nutritional Asmnt/Malnutrition Start: 09/04/18 15: 00 Text: Status: Complete Freq: Protocol: Document 09/04/18 15:02 LCHENG (Rec: 09/04/18 15:04 LCHENG [email or web address]) Nutritional Asmnt/Malnutrition Patient General Information Nutritional Screening Moderate Risk Diagnosis psychosis NOS Pertinent Medical Hx/Surgical Hx HTN, arthritis, anxiety, impulse diorder, depression, schizophrenia, extrapyramidal symptoms, bipolar Subjective Information Pt seen walking in hallway, confused, hyper verbal. Per EMR< PO intake 100%. Current Diet Order/ Nutrition Support regular Pertinent Medications colace, theragran Pertinent Labs no nutrition related labs Nutritional Hx/Data Height 1.52 m Height (Calculated Centimeters) 152.4 Current Weight (lbs) 58.967 kg Weight (Calculated Kilograms) 59.0 Weight (Calculated Grams) 19780.0 [place] Body Weight 100 Body Mass Index (BMI) 25.4 Weight Status Overweight GI Symptoms GI Symptoms None Last BM 09/03 Difficult in: None Skin Integrity/Comment: dryness, shaan 20 Current %PO Good (75-100%) Estimated Nutritional Goals BEE in Kcals: Using Current wt Calories/Kcals/Kg 23-27 Kcals Calculated 0112-6651 Protein: Using Current wt Protein g/k.8 Protein Calculated 51 Fluid: ml 1426-1674ml (1ml/kcal) Nutritional Problem No current Nutrition Prob Problem N/A Malnutrition Alert Is there a minimum of two criteria No selected? Query Text:Check all the applicable criteria. A minimum of two criteria are recommended for diagnosis of either severe or non-severe malnutrition. Malnutrition Related to Morbid Obesity Malnutrition related to morbid obesity No Intervention/Recommendation Comments 1. Continue with regular diet as ordered. 2. Monitor PO intake, wt, labs and skin integrity 3. F/U as low risk in 7 days Expected Outcomes/Goals Expected Outcomes/Goals 1. PO intake to meet at least 75% of nutritional needs. 2. Wt stability, skin to remain intact, labs to approach WNL.
--- NOTE | 2018-09-11 02:24 | Progress Notes ---
DATE: 09/10/2018 Case was discussed with staff of the patient, reviewed records. The patient continues to be acting out. Continues to be unpredictable and impulsive. Continues to have poor insight. She still has episodes of crying. Continues to need redirection. She is compliant with the medication with no side effects, no sedation, no nausea, no extrapyramidal symptoms. We will continue to work with the patient in group therapy, milieu therapy, and adjust medications as needed. JOB# [id number]
[2018-09-11] MEDS: Multivitamin Tab PO SCH (09:34)
[2018-09-11] MEDS: NIFEdipine 30 mg ER Tab PO SCH ×2 (09:35→17:43)
[2018-09-11] MEDS: risperiDONE 1 mg/mL 30 mL Bottle PO SCH ×2 (09:35→17:43)
--- NOTE | 2018-09-11 12:54 | Internal Medicine Prog Note ---
Internal Medicine Subjective - Subjective Service Date: 09/11/18 Patient seen and examined:: with staff (SHE STILL AGITATED ON AND OFF) Patient is:: awake, verbal, in bed, talking, confused Per staff patient has:: no adverse event Internal Medicine Objective - Results Recent Labs: Laboratory Last Values Urine Source CLEAN C 08/29/18 09:30 Urine Color YELLOW 08/29/18 09:30 Urine Clarity CLEAR (CLEAR) 08/29/18 09:30 Urine pH 6.5 (4.6 - 8.0) 08/29/18 09:30 Ur Specific [place] 1.010 (1.005-1.030) 08/29/18 09:30 Urine Protein NEGATIVE mg/dL (NEGATIVE) 08/29/18 09:30 Urine Glucose (UA) NEGATIVE mg/dL (NEGATIVE) 08/29/18 09:30 Urine Ketones NEGATIVE mg/dL (NEGATIVE) 08/29/18 09:30 Urine Blood TRACE (NEGATIVE) 08/29/18 09:30 Urine Nitrate NEGATIVE (NEGATIVE) 08/29/18 09:30 Urine Bilirubin NEGATIVE (NEGATIVE) 08/29/18 09:30 Urine Urobilinogen 1.0 E.U./dL (0.2 - 1.0) 08/29/18 09:30 Ur Leukocyte Esterase TRACE (NEGATIVE) H 08/29/18 09:30 Urine RBC 0-2 /hpf (0-5) 08/29/18 09:30 Urine WBC 2-5 /hpf (0-5) 08/29/18 09:30 Ur Epithelial Cells OCCASIONAL /lpf (FEW) 08/29/18 09:30 Urine Bacteria FEW /hpf (NONE SEEN) 08/29/18 09:30 - Physical Exam Vitals and I&O: Vital Signs Temp 0 F 09/10/18 19:52 Pulse 95 09/10/18 08:22 Resp 20 09/11/18 07:26 BP 160/70 09/10/18 08:22 Pulse Ox 99 09/09/18 14:00 Intake & Output 09/10/18 09/11/18 09/11/18 18:59 06:59 18:59 Intake Total 700 60 Balance 700 60 Intake: Oral 700 60 Other: # Voids 3 1 # Bowel Movements 0 0 Active Medications: Current Medications Al Hydrox/Mg Hydrox/Simethicone (Maalox) 30 ml PO Q4HR PRN PRN Reason: GI DISTRESS Stop: 10/28/18 12:08 Benztropine Mesylate (Cogentin) 2 mg PO HS [facility] Stop: 10/28/18 20:59 Last Admin: 09/10/18 21:11 Dose: Not Given Carbamazepine (Tegretol) 400 mg PO HS [facility] Stop: 10/28/18 20:59 Last Admin: 09/10/18 21:11 Dose: Not Given Celecoxib (Celebrex) 100 mg PO BID [facility] Stop: 10/28/18 16:59 Last Admin: 09/11/18 09:34 Dose: Not Given Docusate Sodium (Colace) 100 mg PO DAILY [facility] Stop: 10/29/18 08:59 Last Admin: 09/11/18 09:34 Dose: Not Given Lorazepam (Ativan) 0.5 mg PO Q4H PRN; Protocol PRN Reason: Agitation Stop: 10/28/18 16:54 Last Admin: 09/09/18 21:03 Dose: 0.5 mg Magnesium Hydroxide (Milk Of Magnesia) 30 ml PO HS PRN PRN Reason: Constipation Multivitamins/Vitamin C (Theragran) 1 tab PO DAILY [facility] Stop: 10/29/18 08:59 Last Admin: 09/11/18 09:34 Dose: Not Given Nifedipine (Procardia Xl) 60 mg PO BID [facility] Stop: 10/28/18 16:59 Last Admin: 09/11/18 09:35 Dose: Not Given Olanzapine (Zyprexa Zydis) 7.5 mg PO HS [facility]; Protocol Stop: 10/30/18 20:59 Last Admin: 09/10/18 21:12 Dose: Not Given Risperidone (Risperdal) 1 mg PO BID [facility]; Protocol Stop: 11/01/18 08:59 Last Admin: 09/11/18 09:35 Dose: Not Given Zolpidem Tartrate (Ambien) 5 mg PO HS PRN PRN Reason: Insomnia Stop: 10/28/18 12:08 Last Admin: 09/08/18 20:22 Dose: 5 mg General: alert HEENT: NC/AT, PERRLA, EOMI, anicteric sclerae, throat clear Neck: Supple, No JVD, No thyromegaly, +2 carotid pulse wo bruit, No LAD Lungs: CTAB Cardiovascular: Normal S1, Normal S2, without murmur Abdomen: soft, non-tender, non-distended Extremities: clear Neurological: no change Internal Medicine Assmt/Plan - Assessment Assessment: 1.HTN. 2.SEIZURE. 3.POLYARTHRITIS 4.PSYCHOSIS - Plan Plan: CONTINUE ON CURRENT MEDICATION AND DIET. Nutritional Asmnt/Malnutr-PDOC - Dietary Evaluation Malnutrition Findings (Please click <Entered> for more info): Nutritional Asmnt/Malnutrition Start: 09/04/18 15: 00 Text: Status: Complete Freq: Protocol: Document 09/04/18 15:02 LCHENG (Rec: 09/04/18 15:04 [email or web address] Nutritional Asmnt/Malnutrition Patient General Information Nutritional Screening Moderate Risk Diagnosis psychosis NOS Pertinent Medical Hx/Surgical Hx HTN, arthritis, anxiety, impulse diorder, depression, schizophrenia, extrapyramidal symptoms, bipolar Subjective Information Pt seen walking in hallway, confused, hyper verbal. Per EMR< PO intake 100%. Current Diet Order/ Nutrition Support regular Pertinent Medications colace, theragran Pertinent Labs no nutrition related labs Nutritional Hx/Data Height 1.52 m Height (Calculated Centimeters) 152.4 Current Weight (lbs) 58.967 kg Weight (Calculated Kilograms) 59.0 Weight (Calculated Grams) 01484.0 [place] Body Weight 100 Body Mass Index (BMI) 25.4 Weight Status Overweight GI Symptoms GI Symptoms None Last BM 09/03 Difficult in: None Skin Integrity/Comment: dryness, shaan 20 Current %PO Good (75-100%) Estimated Nutritional Goals BEE in Kcals: Using Current wt Calories/Kcals/Kg 23-27 Kcals Calculated 4451-8647 Protein: Using Current wt Protein g/k.8 Protein Calculated 51 Fluid: ml 1426-1674ml (1ml/kcal) Nutritional Problem No current Nutrition Prob Problem N/A Malnutrition Alert Is there a minimum of two criteria No selected? Query Text:Check all the applicable criteria. A minimum of two criteria are recommended for diagnosis of either severe or non-severe malnutrition. Malnutrition Related to Morbid Obesity Malnutrition related to morbid obesity No Intervention/Recommendation Comments 1. Continue with regular diet as ordered. 2. Monitor PO intake, wt, labs and skin integrity 3. F/U as low risk in 7 days Expected Outcomes/Goals Expected Outcomes/Goals 1. PO intake to meet at least 75% of nutritional needs. 2. Wt stability, skin to remain intact, labs to approach WNL.
[2018-09-11] MEDS: OLANZapine 5 mg Oral Disintegrating Tab PO SCH (20:29)
[2018-09-11] MEDS: Benztropine 1 MG TAB PO SCH (20:30)
[2018-09-12] MEDS: risperiDONE 1 mg/mL 30 mL Bottle PO SCH ×2 (09:13→16:58)
[2018-09-12] MEDS: NIFEdipine 30 mg ER Tab PO SCH ×2 (09:14→16:57)
[2018-09-12] MEDS: Multivitamin Tab PO SCH (09:20)
--- NOTE | 2018-09-12 11:56 | Progress Notes ---
DATE: SUBJECTIVE: Chart was reviewed and the patient interviewed. I also discussed the patient's condition with the staff and reviewed records and labs. The patient still has episodes of agitation and irritability, but at the same time, she slept better last night and she seems to be slightly calmer than before. The patient also is still withdrawn, but during the day the patient has episodes of anger and irritability that required emergency medications. She is still refusing to take her routine medications. She is also still suspicious and paranoid. ASSESSMENT: The patient is still psychotic and agitated. TREATMENT PLAN: Continue monitoring her behavior and her condition closely. Also, continue adjusting psychotropic medications and follow up closely. [facility]# [id number]
--- NOTE | 2018-09-12 14:15 | Internal Medicine Prog Note ---
Internal Medicine Subjective - Subjective Service Date: 09/12/18 Patient seen and examined:: with staff (SHE IS DOING BETTER) Patient is:: awake, verbal, in bed, talking, confused Per staff patient has:: no adverse event Internal Medicine Objective - Results Recent Labs: Laboratory Last Values Urine Source CLEAN C 08/29/18 09:30 Urine Color YELLOW 08/29/18 09:30 Urine Clarity CLEAR (CLEAR) 08/29/18 09:30 Urine pH 6.5 (4.6 - 8.0) 08/29/18 09:30 Ur Specific [place] 1.010 (1.005-1.030) 08/29/18 09:30 Urine Protein NEGATIVE mg/dL (NEGATIVE) 08/29/18 09:30 Urine Glucose (UA) NEGATIVE mg/dL (NEGATIVE) 08/29/18 09:30 Urine Ketones NEGATIVE mg/dL (NEGATIVE) 08/29/18 09:30 Urine Blood TRACE (NEGATIVE) 08/29/18 09:30 Urine Nitrate NEGATIVE (NEGATIVE) 08/29/18 09:30 Urine Bilirubin NEGATIVE (NEGATIVE) 08/29/18 09:30 Urine Urobilinogen 1.0 E.U./dL (0.2 - 1.0) 08/29/18 09:30 Ur Leukocyte Esterase TRACE (NEGATIVE) H 08/29/18 09:30 Urine RBC 0-2 /hpf (0-5) 08/29/18 09:30 Urine WBC 2-5 /hpf (0-5) 08/29/18 09:30 Ur Epithelial Cells OCCASIONAL /lpf (FEW) 08/29/18 09:30 Urine Bacteria FEW /hpf (NONE SEEN) 08/29/18 09:30 - Physical Exam Vitals and I&O: Vital Signs Temp 0 F 09/10/18 19:52 Pulse 63 09/12/18 09:14 Resp 20 09/12/18 08:00 BP 132/71 09/12/18 09:14 Pulse Ox 99 09/09/18 14:00 Intake & Output 09/11/18 09/12/18 09/12/18 18:59 06:59 18:59 Intake Total 900 Balance 900 Intake: Oral 900 Other: # Voids 3 # Bowel Movements 0 Active Medications: Current Medications Al Hydrox/Mg Hydrox/Simethicone (Maalox) 30 ml PO Q4HR PRN PRN Reason: GI DISTRESS Stop: 10/28/18 12:08 Benztropine Mesylate (Cogentin) 2 mg PO HS [facility] Stop: 10/28/18 20:59 Last Admin: 09/11/18 20:30 Dose: Not Given Carbamazepine (Tegretol) 400 mg PO HS [facility] Stop: 10/28/18 20:59 Last Admin: 09/11/18 20:30 Dose: Not Given Celecoxib (Celebrex) 100 mg PO BID [facility] Stop: 10/28/18 16:59 Last Admin: 09/12/18 09:15 Dose: Not Given Docusate Sodium (Colace) 100 mg PO DAILY [facility] Stop: 10/29/18 08:59 Last Admin: 09/12/18 09:20 Dose: Not Given Lorazepam (Ativan) 0.5 mg PO Q4H PRN; Protocol PRN Reason: Agitation Stop: 10/28/18 16:54 Last Admin: 09/09/18 21:03 Dose: 0.5 mg Magnesium Hydroxide (Milk Of Magnesia) 30 ml PO HS PRN PRN Reason: Constipation Multivitamins/Vitamin C (Theragran) 1 tab PO DAILY [facility] Stop: 10/29/18 08:59 Last Admin: 09/12/18 09:20 Dose: Not Given Nifedipine (Procardia Xl) 60 mg PO BID [facility] Stop: 10/28/18 16:59 Last Admin: 09/12/18 09:14 Dose: 60 mg Olanzapine (Zyprexa Zydis) 7.5 mg PO HS [facility]; Protocol Stop: 10/30/18 20:59 Last Admin: 09/11/18 20:29 Dose: Not Given Risperidone (Risperdal) 1 mg PO BID [facility]; Protocol Stop: 11/01/18 08:59 Last Admin: 09/12/18 09:13 Dose: 1 mg Valproate Sodium (Depakene) 500 mg PO BID [facility]; Protocol Stop: 11/11/18 08:59 Last Admin: 09/12/18 09:14 Dose: 500 mg Zolpidem Tartrate (Ambien) 5 mg PO HS PRN PRN Reason: Insomnia Stop: 10/28/18 12:08 Last Admin: 09/08/18 20:22 Dose: 5 mg General: alert HEENT: NC/AT, PERRLA, EOMI, anicteric sclerae, throat clear Neck: Supple, No JVD, No thyromegaly, +2 carotid pulse wo bruit, No LAD Lungs: CTAB Cardiovascular: Normal S1, Normal S2, without murmur Abdomen: soft, non-tender, non-distended Extremities: clear Neurological: no change Internal Medicine Assmt/Plan - Assessment Assessment: 1.HTN. 2.SEIZURE. 3.POLYARTHRITIS 4.PSYCHOSIS - Plan Plan: CONTINUE ON CURRENT MEDICATION AND DIET. Nutritional Asmnt/Malnutr-PDOC - Dietary Evaluation Malnutrition Findings (Please click <Entered> for more info): Nutritional Asmnt/Malnutrition Start: 09/04/18 15: 00 Text: Status: Complete Freq: Protocol: Document 09/04/18 15:02 LCHENG (Rec: 09/04/18 15:04 [email or web address]) Nutritional Asmnt/Malnutrition Patient General Information Nutritional Screening Moderate Risk Diagnosis psychosis NOS Pertinent Medical Hx/Surgical Hx HTN, arthritis, anxiety, impulse diorder, depression, schizophrenia, extrapyramidal symptoms, bipolar Subjective Information Pt seen walking in hallway, confused, hyper verbal. Per EMR< PO intake 100%. Current Diet Order/ Nutrition Support regular Pertinent Medications colace, theragran Pertinent Labs no nutrition related labs Nutritional Hx/Data Height 1.52 m Height (Calculated Centimeters) 152.4 Current Weight (lbs) 58.967 kg Weight (Calculated Kilograms) 59.0 Weight (Calculated Grams) 21469.0 [place] Body Weight 100 Body Mass Index (BMI) 25.4 Weight Status Overweight GI Symptoms GI Symptoms None Last BM 09/03 Difficult in: None Skin Integrity/Comment: dryness, shaan 20 Current %PO Good (75-100%) Estimated Nutritional Goals BEE in Kcals: Using Current wt Calories/Kcals/Kg 23-27 Kcals Calculated 3509-1598 Protein: Using Current wt Protein g/k.8 Protein Calculated 51 Fluid: ml 1426-1674ml (1ml/kcal) Nutritional Problem No current Nutrition Prob Problem N/A Malnutrition Alert Is there a minimum of two criteria No selected? Query Text:Check all the applicable criteria. A minimum of two criteria are recommended for diagnosis of either severe or non-severe malnutrition. Malnutrition Related to Morbid Obesity Malnutrition related to morbid obesity No Intervention/Recommendation Comments 1. Continue with regular diet as ordered. 2. Monitor PO intake, wt, labs and skin integrity 3. F/U as low risk in 7 days Expected Outcomes/Goals Expected Outcomes/Goals 1. PO intake to meet at least 75% of nutritional needs. 2. Wt stability, skin to remain intact, labs to approach WNL.
[2018-09-12] MEDS: Benztropine 1 MG TAB PO SCH (21:03)
[2018-09-12] MEDS: OLANZapine 5 mg Oral Disintegrating Tab PO SCH (21:06)
[2018-09-12] MEDS ORDERED: Haloperidol Lactate 5 mg/mL 1mL Vial IM ONE (22:00)
[2018-09-13] MEDS: NIFEdipine 30 mg ER Tab PO SCH ×2 (08:56→17:10)
[2018-09-13] MEDS: Multivitamin Tab PO SCH (08:56)
[2018-09-13] MEDS: risperiDONE 1 mg/mL 30 mL Bottle PO SCH ×2 (08:57→17:11)
--- NOTE | 2018-09-13 14:11 | Internal Medicine Prog Note ---
Internal Medicine Subjective - Subjective Service Date: 09/13/18 Patient seen and examined:: without staff (SHE IS DOING BETTER) Patient is:: awake, verbal, in bed, talking, confused Per staff patient has:: no adverse event Internal Medicine Objective - Results Recent Labs: Laboratory Last Values Urine Source CLEAN C 08/29/18 09:30 Urine Color YELLOW 08/29/18 09:30 Urine Clarity CLEAR (CLEAR) 08/29/18 09:30 Urine pH 6.5 (4.6 - 8.0) 08/29/18 09:30 Ur Specific [place] 1.010 (1.005-1.030) 08/29/18 09:30 Urine Protein NEGATIVE mg/dL (NEGATIVE) 08/29/18 09:30 Urine Glucose (UA) NEGATIVE mg/dL (NEGATIVE) 08/29/18 09:30 Urine Ketones NEGATIVE mg/dL (NEGATIVE) 08/29/18 09:30 Urine Blood TRACE (NEGATIVE) 08/29/18 09:30 Urine Nitrate NEGATIVE (NEGATIVE) 08/29/18 09:30 Urine Bilirubin NEGATIVE (NEGATIVE) 08/29/18 09:30 Urine Urobilinogen 1.0 E.U./dL (0.2 - 1.0) 08/29/18 09:30 Ur Leukocyte Esterase TRACE (NEGATIVE) H 08/29/18 09:30 Urine RBC 0-2 /hpf (0-5) 08/29/18 09:30 Urine WBC 2-5 /hpf (0-5) 08/29/18 09:30 Ur Epithelial Cells OCCASIONAL /lpf (FEW) 08/29/18 09:30 Urine Bacteria FEW /hpf (NONE SEEN) 08/29/18 09:30 - Physical Exam Vitals and I&O: Vital Signs Temp 98.2 F 09/12/18 14:00 Pulse 93 09/12/18 16:57 Resp 20 09/12/18 20:00 BP 124/87 09/12/18 16:57 Pulse Ox 98 09/12/18 14:00 Intake & Output 09/12/18 09/13/18 09/13/18 18:59 06:59 18:59 Intake Total 1200 230 Balance 1200 230 Intake: Oral 1200 230 Other: # Voids 2 # Bowel Movements 1 0 Active Medications: Current Medications Al Hydrox/Mg Hydrox/Simethicone (Maalox) 30 ml PO Q4HR PRN PRN Reason: GI DISTRESS Stop: 10/28/18 12:08 Benztropine Mesylate (Cogentin) 2 mg PO HS [facility] Stop: 10/28/18 20:59 Last Admin: 09/12/18 21:03 Dose: Not Given Carbamazepine (Tegretol) 400 mg PO HS [facility] Stop: 10/28/18 20:59 Last Admin: 09/12/18 21:03 Dose: Not Given Celecoxib (Celebrex) 100 mg PO BID [facility] Stop: 10/28/18 16:59 Last Admin: 09/13/18 08:55 Dose: Not Given Docusate Sodium (Colace) 100 mg PO DAILY [facility] Stop: 10/29/18 08:59 Last Admin: 09/13/18 08:55 Dose: Not Given Lorazepam (Ativan) 0.5 mg PO Q4H PRN; Protocol PRN Reason: Agitation Stop: 10/28/18 16:54 Last Admin: 09/09/18 21:03 Dose: 0.5 mg Magnesium Hydroxide (Milk Of Magnesia) 30 ml PO HS PRN PRN Reason: Constipation Multivitamins/Vitamin C (Theragran) 1 tab PO DAILY [facility] Stop: 10/29/18 08:59 Last Admin: 09/13/18 08:56 Dose: Not Given Nifedipine (Procardia Xl) 60 mg PO BID [facility] Stop: 10/28/18 16:59 Last Admin: 09/13/18 08:56 Dose: Not Given Olanzapine (Zyprexa Zydis) 7.5 mg PO HS [facility]; Protocol Stop: 10/30/18 20:59 Last Admin: 09/12/18 21:06 Dose: Not Given Risperidone (Risperdal) 1 mg PO BID [facility]; Protocol Stop: 11/01/18 08:59 Last Admin: 09/13/18 08:57 Dose: Not Given Valproate Sodium (Depakene) 500 mg PO BID [facility]; Protocol Stop: 11/11/18 08:59 Last Admin: 09/13/18 08:57 Dose: Not Given Zolpidem Tartrate (Ambien) 5 mg PO HS PRN PRN Reason: Insomnia Stop: 10/28/18 12:08 Last Admin: 09/08/18 20:22 Dose: 5 mg General: alert HEENT: NC/AT, PERRLA, EOMI, anicteric sclerae, throat clear Neck: Supple, No JVD, No thyromegaly, +2 carotid pulse wo bruit, No LAD Lungs: CTAB Cardiovascular: Normal S1, Normal S2, without murmur Abdomen: soft, non-tender, non-distended Extremities: clear Neurological: no change Internal Medicine Assmt/Plan - Assessment Assessment: 1.HTN. 2.SEIZURE. 3.POLYARTHRITIS 4.PSYCHOSIS - Plan Plan: CONTINUE ON CURRENT MEDICATION AND DIET. Nutritional Asmnt/Malnutr-PDOC - Dietary Evaluation Malnutrition Findings (Please click <Entered> for more info): Nutritional Asmnt/Malnutrition Start: 09/04/18 15: 00 Text: Status: Complete Freq: Protocol: Document 09/04/18 15:02 NORBERTOG (Rec: 09/04/18 15:04 [email or web address] [email or web address]) Nutritional Asmnt/Malnutrition Patient General Information Nutritional Screening Moderate Risk Diagnosis psychosis NOS Pertinent Medical Hx/Surgical Hx HTN, arthritis, anxiety, impulse diorder, depression, schizophrenia, extrapyramidal symptoms, bipolar Subjective Information Pt seen walking in hallway, confused, hyper verbal. Per EMR< PO intake 100%. Current Diet Order/ Nutrition Support regular Pertinent Medications colace, theragran Pertinent Labs no nutrition related labs Nutritional Hx/Data Height 1.52 m Height (Calculated Centimeters) 152.4 Current Weight (lbs) 58.967 kg Weight (Calculated Kilograms) 59.0 Weight (Calculated Grams) 89168.0 [place] Body Weight 100 Body Mass Index (BMI) 25.4 Weight Status Overweight GI Symptoms GI Symptoms None Last BM 09/03 Difficult in: None Skin Integrity/Comment: dryness, shaan 20 Current %PO Good (75-100%) Estimated Nutritional Goals BEE in Kcals: Using Current wt Calories/Kcals/Kg 23-27 Kcals Calculated 1054-4987 Protein: Using Current wt Protein g/k.8 Protein Calculated 51 Fluid: ml 1426-1674ml (1ml/kcal) Nutritional Problem No current Nutrition Prob Problem N/A Malnutrition Alert Is there a minimum of two criteria No selected? Query Text:Check all the applicable criteria. A minimum of two criteria are recommended for diagnosis of either severe or non-severe malnutrition. Malnutrition Related to Morbid Obesity Malnutrition related to morbid obesity No Intervention/Recommendation Comments 1. Continue with regular diet as ordered. 2. Monitor PO intake, wt, labs and skin integrity 3. F/U as low risk in 7 days Expected Outcomes/Goals Expected Outcomes/Goals 1. PO intake to meet at least 75% of nutritional needs. 2. Wt stability, skin to remain intact, labs to approach WNL.
[2018-09-13] MEDS ORDERED: Haloperidol Lactate 5 mg/mL 1mL Vial IM ONE (16:43)
[2018-09-13] MEDS ORDERED: Haloperidol Lactate 5 mg/mL 1mL Vial ONE (16:47)
--- NOTE | 2018-09-13 19:11 | Progress Notes ---
DATE: SUBJECTIVE: Chart was reviewed and the patient interviewed. Also discussed the patient's condition with the staff and reviewed records and labs. The patient is still easily agitated and she is still suspicious and paranoid. The patient also is still impulsive and still has difficulty following staff directions. She also still has episodes of yelling and screaming and wandering and entering other patient's rooms. She is uncooperative with the staff and refusing medications. The patient did not want to take Risperdal, Cogentin, Tegretol or Zyprexa. She also still can be dangerous to others and still needs lots of redirections. ASSESSMENT: The patient is still agitated and can be dangerous to others and confused. TREATMENT PLAN: We will continue monitoring her behavior closely and we will continue to encourage the patient to take medications. Also, we will start Depakene 500 mg twice a day. Hopefully, the patient will agree to take liquid form. Also, continue to work on behavioral modifications and followup. JOB# [id number]
[2018-09-13] MEDS: Benztropine 1 MG TAB PO SCH (20:43)
[2018-09-13] MEDS: OLANZapine 5 mg Oral Disintegrating Tab PO SCH (20:43)
--- NOTE | 2018-09-14 08:13 | Progress Notes ---
DATE: SUBJECTIVE: Chart was reviewed and the patient interviewed. Also discussed the patient's condition with the staff and reviewed records and labs. The patient is still agitated and is still aggressive and in irritable mood. The patient also is still intrusive and fighting with the staff and peers for no apparent reason. She also is suspicious and paranoid. The patient had to be given injection of emergency medications because of her aggressive behavior and irritability. She also still refused to take medications at times. ASSESSMENT: The patient is still psychotic and aggressive. TREATMENT PLAN: Continue monitoring her behavior and her condition closely. Also, encouraged the patient to take her medications orally. Also, continue to adjust medications and work on behavioral modification. [facility]# [id number]
[2018-09-14] MEDS: Multivitamin Tab PO SCH (09:08)
[2018-09-14] MEDS: NIFEdipine 30 mg ER Tab PO SCH ×2 (09:08→16:03)
[2018-09-14] MEDS: risperiDONE 1 mg/mL 30 mL Bottle PO SCH ×2 (09:09→17:00)
[2018-09-14] MEDS: Benztropine 1 MG TAB PO SCH (20:49)
[2018-09-14] MEDS: OLANZapine 5 mg Oral Disintegrating Tab PO SCH (20:49)
--- NOTE | 2018-09-14 23:46 | Internal Medicine Prog Note ---
Internal Medicine Subjective - Subjective Service Date: 09/14/18 Patient seen and examined:: with staff (SHE IS STILL CONFUSED AND AGITATED.) Patient is:: awake, verbal, in bed, talking, confused Per staff patient has:: no adverse event Internal Medicine Objective - Results Recent Labs: Laboratory Last Values Urine Source CLEAN C 08/29/18 09:30 Urine Color YELLOW 08/29/18 09:30 Urine Clarity CLEAR (CLEAR) 08/29/18 09:30 Urine pH 6.5 (4.6 - 8.0) 08/29/18 09:30 Ur Specific [place] 1.010 (1.005-1.030) 08/29/18 09:30 Urine Protein NEGATIVE mg/dL (NEGATIVE) 08/29/18 09:30 Urine Glucose (UA) NEGATIVE mg/dL (NEGATIVE) 08/29/18 09:30 Urine Ketones NEGATIVE mg/dL (NEGATIVE) 08/29/18 09:30 Urine Blood TRACE (NEGATIVE) 08/29/18 09:30 Urine Nitrate NEGATIVE (NEGATIVE) 08/29/18 09:30 Urine Bilirubin NEGATIVE (NEGATIVE) 08/29/18 09:30 Urine Urobilinogen 1.0 E.U./dL (0.2 - 1.0) 08/29/18 09:30 Ur Leukocyte Esterase TRACE (NEGATIVE) H 08/29/18 09:30 Urine RBC 0-2 /hpf (0-5) 08/29/18 09:30 Urine WBC 2-5 /hpf (0-5) 08/29/18 09:30 Ur Epithelial Cells OCCASIONAL /lpf (FEW) 08/29/18 09:30 Urine Bacteria FEW /hpf (NONE SEEN) 08/29/18 09:30 - Physical Exam Vitals and I&O: Vital Signs Temp 97.3 F 09/14/18 20:00 Pulse 75 09/14/18 20:00 Resp 18 09/14/18 20:00 BP 122/79 09/14/18 20:00 Pulse Ox 97 09/14/18 20:00 Intake & Output 09/14/18 09/14/18 09/15/18 06:59 18:59 06:59 Intake Total 960 Balance 960 Intake: Oral 960 Other: # Voids 2 2 # Bowel Movements 0 Active Medications: Current Medications Al Hydrox/Mg Hydrox/Simethicone (Maalox) 30 ml PO Q4HR PRN PRN Reason: GI DISTRESS Stop: 10/28/18 12:08 Benztropine Mesylate (Cogentin) 2 mg PO HS NICOLE Stop: 10/28/18 20:59 Last Admin: 09/14/18 20:49 Dose: 2 mg Carbamazepine (Tegretol) 400 mg PO HS N[facility]LE Stop: 10/28/18 20:59 Last Admin: 09/14/18 20:49 Dose: 400 mg Celecoxib (Celebrex) 100 mg PO BID [facility] Stop: 10/28/18 16:59 Last Admin: 09/14/18 16:03 Dose: 100 mg Docusate Sodium (Colace) 100 mg PO DAILY [facility] Stop: 10/29/18 08:59 Last Admin: 09/14/18 09:08 Dose: Not Given Lorazepam (Ativan) 0.5 mg PO Q4H PRN; Protocol PRN Reason: Agitation Stop: 10/28/18 16:54 Last Admin: 09/13/18 20:43 Dose: 0.5 mg Magnesium Hydroxide (Milk Of Magnesia) 30 ml PO HS PRN PRN Reason: Constipation Multivitamins/Vitamin C (Theragran) 1 tab PO DAILY [facility] Stop: 10/29/18 08:59 Last Admin: 09/14/18 09:08 Dose: Not Given Nifedipine (Procardia Xl) 60 mg PO BID [facility] Stop: 10/28/18 16:59 Last Admin: 09/14/18 16:03 Dose: 60 mg Olanzapine (Zyprexa Zydis) 7.5 mg PO HS [facility]; Protocol Stop: 10/30/18 20:59 Last Admin: 09/14/18 20:49 Dose: 7.5 mg Risperidone (Risperdal) 1 mg PO BID [facility]; Protocol Stop: 11/01/18 08:59 Last Admin: 09/14/18 17:00 Dose: Not Given Valproate Sodium (Depakene) 500 mg PO BID [facility]; Protocol Stop: 11/11/18 08:59 Last Admin: 09/14/18 16:02 Dose: 500 mg Zolpidem Tartrate (Ambien) 5 mg PO HS PRN PRN Reason: Insomnia Stop: 10/28/18 12:08 Last Admin: 09/14/18 20:49 Dose: 5 mg General: alert HEENT: NC/AT, PERRLA, EOMI, anicteric sclerae, throat clear Neck: Supple, No JVD, No thyromegaly, +2 carotid pulse wo bruit, No LAD Lungs: CTAB Cardiovascular: Normal S1, Normal S2, without murmur Abdomen: soft, non-tender, non-distended Extremities: clear Neurological: no change Internal Medicine Assmt/Plan - Assessment Assessment: 1.HTN. 2.SEIZURE. 3.POLYARTHRITIS 4.PSYCHOSIS - Plan Plan: CONTINUE ON CURRENT MEDICATION AND DIET. Nutritional Asmnt/Malnutr-PDOC - Dietary Evaluation Malnutrition Findings (Please click <Entered> for more info): Nutritional Asmnt/Malnutrition Start: 09/04/18 15: 00 Text: Status: Complete Freq: Protocol: Document 09/04/18 15:02 LCBRUCEG (Rec: 09/04/18 15:04 [email or web address] [email or web address]) Nutritional Asmnt/Malnutrition Patient General Information Nutritional Screening Moderate Risk Diagnosis psychosis NOS Pertinent Medical Hx/Surgical Hx HTN, arthritis, anxiety, impulse diorder, depression, schizophrenia, extrapyramidal symptoms, bipolar Subjective Information Pt seen walking in hallway, confused, hyper verbal. Per EMR< PO intake 100%. Current Diet Order/ Nutrition Support regular Pertinent Medications colace, theragran Pertinent Labs no nutrition related labs Nutritional Hx/Data Height 1.52 m Height (Calculated Centimeters) 152.4 Current Weight (lbs) 58.967 kg Weight (Calculated Kilograms) 59.0 Weight (Calculated Grams) 17952.0 [place] Body Weight 100 Body Mass Index (BMI) 25.4 Weight Status Overweight GI Symptoms GI Symptoms None Last BM 09/03 Difficult in: None Skin Integrity/Comment: dryness, shaan 20 Current %PO Good (75-100%) Estimated Nutritional Goals BEE in Kcals: Using Current wt Calories/Kcals/Kg 23-27 Kcals Calculated 2395-4373 Protein: Using Current wt Protein g/k.8 Protein Calculated 51 Fluid: ml 1426-1674ml (1ml/kcal) Nutritional Problem No current Nutrition Prob Problem N/A Malnutrition Alert Is there a minimum of two criteria No selected? Query Text:Check all the applicable criteria. A minimum of two criteria are recommended for diagnosis of either severe or non-severe malnutrition. Malnutrition Related to Morbid Obesity Malnutrition related to morbid obesity No Intervention/Recommendation Comments 1. Continue with regular diet as ordered. 2. Monitor PO intake, wt, labs and skin integrity 3. F/U as low risk in 7 days Expected Outcomes/Goals Expected Outcomes/Goals 1. PO intake to meet at least 75% of nutritional needs. 2. Wt stability, skin to remain intact, labs to approach WNL.
--- NOTE | 2018-09-14 23:47 | Progress Notes ---
DATE: 09/14/[address] Ramon. SUBJECTIVE: This is a well-known case to me. I have seen her many times. Case was discussed with staff of the patient, reviewed records. The patient continues to be intrusive, aggressive, easily agitated, labile. She continues to have poor insight, fighting with staff. Also, interacting poorly with other patients. She continues to be suspicious and paranoid. She is sleeping and eating well. She is compliant with the medication, no side effects, no sedation, and no nausea. We will continue to work with the patient in group therapy, milieu therapy, and adjust the medications as needed. JOB# [id number]
[2018-09-15] MEDS: NIFEdipine 30 mg ER Tab PO SCH ×2 (08:27→16:00)
[2018-09-15] MEDS: Multivitamin Tab PO SCH (08:27)
[2018-09-15] MEDS: risperiDONE 1 mg/mL 30 mL Bottle PO SCH ×2 (08:59→16:00)
--- NOTE | 2018-09-15 12:57 | Internal Medicine Prog Note ---
Internal Medicine Subjective - Subjective Service Date: 09/15/18 Patient seen and examined:: with staff (SHE FEELS WELL) Patient is:: awake, verbal, in bed, talking, confused Per staff patient has:: no adverse event Internal Medicine Objective - Results Recent Labs: Laboratory Last Values Urine Source CLEAN C 08/29/18 09:30 Urine Color YELLOW 08/29/18 09:30 Urine Clarity CLEAR (CLEAR) 08/29/18 09:30 Urine pH 6.5 (4.6 - 8.0) 08/29/18 09:30 Ur Specific [place] 1.010 (1.005-1.030) 08/29/18 09:30 Urine Protein NEGATIVE mg/dL (NEGATIVE) 08/29/18 09:30 Urine Glucose (UA) NEGATIVE mg/dL (NEGATIVE) 08/29/18 09:30 Urine Ketones NEGATIVE mg/dL (NEGATIVE) 08/29/18 09:30 Urine Blood TRACE (NEGATIVE) 08/29/18 09:30 Urine Nitrate NEGATIVE (NEGATIVE) 08/29/18 09:30 Urine Bilirubin NEGATIVE (NEGATIVE) 08/29/18 09:30 Urine Urobilinogen 1.0 E.U./dL (0.2 - 1.0) 08/29/18 09:30 Ur Leukocyte Esterase TRACE (NEGATIVE) H 08/29/18 09:30 Urine RBC 0-2 /hpf (0-5) 08/29/18 09:30 Urine WBC 2-5 /hpf (0-5) 08/29/18 09:30 Ur Epithelial Cells OCCASIONAL /lpf (FEW) 08/29/18 09:30 Urine Bacteria FEW /hpf (NONE SEEN) 08/29/18 09:30 - Physical Exam Vitals and I&O: Vital Signs Temp 97.3 F 09/14/18 20:00 Pulse 75 09/14/18 20:00 Resp 18 09/14/18 20:00 BP 122/79 09/14/18 20:00 Pulse Ox 97 09/14/18 20:00 Intake & Output 09/14/18 09/15/18 09/15/18 18:59 06:59 18:59 Intake Total 120 Balance 120 Intake: Oral 120 Other: # Voids 2 3 # Bowel Movements 0 Active Medications: Current Medications Al Hydrox/Mg Hydrox/Simethicone (Maalox) 30 ml PO Q4HR PRN PRN Reason: GI DISTRESS Stop: 10/28/18 12:08 Benztropine Mesylate (Cogentin) 2 mg PO HS [facility] Stop: 10/28/18 20:59 Last Admin: 09/14/18 20:49 Dose: 2 mg Carbamazepine (Tegretol) 400 mg PO HS [facility] Stop: 10/28/18 20:59 Last Admin: 09/14/18 20:49 Dose: 400 mg Celecoxib (Celebrex) 100 mg PO BID [facility] Stop: 10/28/18 16:59 Last Admin: 09/15/18 08:27 Dose: Not Given Docusate Sodium (Colace) 100 mg PO DAILY [facility] Stop: 10/29/18 08:59 Last Admin: 09/15/18 08:27 Dose: Not Given Lorazepam (Ativan) 0.5 mg PO Q4H PRN; Protocol PRN Reason: Agitation Stop: 10/28/18 16:54 Last Admin: 09/13/18 20:43 Dose: 0.5 mg Magnesium Hydroxide (Milk Of Magnesia) 30 ml PO HS PRN PRN Reason: Constipation Multivitamins/Vitamin C (Theragran) 1 tab PO DAILY [facility] Stop: 10/29/18 08:59 Last Admin: 09/15/18 08:27 Dose: Not Given Nifedipine (Procardia Xl) 60 mg PO BID [facility] Stop: 10/28/18 16:59 Last Admin: 09/15/18 08:27 Dose: Not Given Olanzapine (Zyprexa Zydis) 7.5 mg PO HS [facility]; Protocol Stop: 10/30/18 20:59 Last Admin: 09/14/18 20:49 Dose: 7.5 mg Risperidone (Risperdal) 1 mg PO BID [facility]; Protocol Stop: 11/01/18 08:59 Last Admin: 09/15/18 08:59 Dose: Not Given Valproate Sodium (Depakene) 500 mg PO BID [facility]; Protocol Stop: 11/11/18 08:59 Last Admin: 09/15/18 08:59 Dose: Not Given Zolpidem Tartrate (Ambien) 5 mg PO HS PRN PRN Reason: Insomnia Stop: 10/28/18 12:08 Last Admin: 09/14/18 20:49 Dose: 5 mg General: alert HEENT: NC/AT, PERRLA, EOMI, anicteric sclerae, throat clear Neck: Supple, No JVD, No thyromegaly, +2 carotid pulse wo bruit, No LAD Lungs: CTAB Cardiovascular: Normal S1, Normal S2, without murmur Abdomen: soft, non-tender, non-distended Extremities: clear Neurological: no change Internal Medicine Assmt/Plan - Assessment Assessment: 1.HTN. 2.SEIZURE. 3.POLYARTHRITIS 4.PSYCHOSIS - Plan Plan: CONTINUE ON CURRENT MEDICATION AND DIET. Nutritional Asmnt/Malnutr-PDOC - Dietary Evaluation Malnutrition Findings (Please click <Entered> for more info): Nutritional Asmnt/Malnutrition Start: 09/04/18 15: 00 Text: Status: Complete Freq: Protocol: Document 09/04/18 15:02 LCBRUCEG (Rec: 09/04/18 15:04 [email or web address] [email or web address]) Nutritional Asmnt/Malnutrition Patient General Information Nutritional Screening Moderate Risk Diagnosis psychosis NOS Pertinent Medical Hx/Surgical Hx HTN, arthritis, anxiety, impulse diorder, depression, schizophrenia, extrapyramidal symptoms, bipolar Subjective Information Pt seen walking in hallway, confused, hyper verbal. Per EMR< PO intake 100%. Current Diet Order/ Nutrition Support regular Pertinent Medications colace, theragran Pertinent Labs no nutrition related labs Nutritional Hx/Data Height 1.52 m Height (Calculated Centimeters) 152.4 Current Weight (lbs) 58.967 kg Weight (Calculated Kilograms) 59.0 Weight (Calculated Grams) 89593.0 [place] Body Weight 100 Body Mass Index (BMI) 25.4 Weight Status Overweight GI Symptoms GI Symptoms None Last BM 09/03 Difficult in: None Skin Integrity/Comment: dryness, shaan 20 Current %PO Good (75-100%) Estimated Nutritional Goals BEE in Kcals: Using Current wt Calories/Kcals/Kg 23-27 Kcals Calculated 1109-9313 Protein: Using Current wt Protein g/k.8 Protein Calculated 51 Fluid: ml 1426-1674ml (1ml/kcal) Nutritional Problem No current Nutrition Prob Problem N/A Malnutrition Alert Is there a minimum of two criteria No selected? Query Text:Check all the applicable criteria. A minimum of two criteria are recommended for diagnosis of either severe or non-severe malnutrition. Malnutrition Related to Morbid Obesity Malnutrition related to morbid obesity No Intervention/Recommendation Comments 1. Continue with regular diet as ordered. 2. Monitor PO intake, wt, labs and skin integrity 3. F/U as low risk in 7 days Expected Outcomes/Goals Expected Outcomes/Goals 1. PO intake to meet at least 75% of nutritional needs. 2. Wt stability, skin to remain intact, labs to approach WNL.
[2018-09-15] MEDS: OLANZapine 5 mg Oral Disintegrating Tab PO SCH (21:09)
[2018-09-15] MEDS: Benztropine 1 MG TAB PO SCH (21:17)
--- NOTE | 2018-09-15 23:38 | Progress Notes ---
DATE: 09/15/2018 SUBJECTIVE: Case was discussed with staff of the patient, reviewed records. The patient continues to be intrusive, easily agitated, continues to have poor insight, labile, continues to fighting with staff, unpredictable, impulsive, needing redirection. No side effects with the medication, no sedation, no nausea, no extrapyramidal symptoms. We will continue to work with the patient in group therapy, milieu therapy, and adjust medications as needed. JOB# [id number]
[2018-09-16] MEDS: NIFEdipine 30 mg ER Tab PO SCH ×2 (09:25→16:19)
[2018-09-16] MEDS: Multivitamin Tab PO SCH (09:25)
[2018-09-16] MEDS: risperiDONE 1 mg/mL 30 mL Bottle PO SCH ×2 (09:32→16:20)
--- NOTE | 2018-09-16 19:33 | Internal Medicine Prog Note ---
Internal Medicine Subjective - Subjective Service Date: 09/16/18 Patient seen and examined:: with staff (SHE IS DOING BETTER) Patient is:: awake, verbal, in bed, talking, confused Per staff patient has:: no adverse event Internal Medicine Objective - Results Recent Labs: Laboratory Last Values Urine Source CLEAN C 08/29/18 09:30 Urine Color YELLOW 08/29/18 09:30 Urine Clarity CLEAR (CLEAR) 08/29/18 09:30 Urine pH 6.5 (4.6 - 8.0) 08/29/18 09:30 Ur Specific [place] 1.010 (1.005-1.030) 08/29/18 09:30 Urine Protein NEGATIVE mg/dL (NEGATIVE) 08/29/18 09:30 Urine Glucose (UA) NEGATIVE mg/dL (NEGATIVE) 08/29/18 09:30 Urine Ketones NEGATIVE mg/dL (NEGATIVE) 08/29/18 09:30 Urine Blood TRACE (NEGATIVE) 08/29/18 09:30 Urine Nitrate NEGATIVE (NEGATIVE) 08/29/18 09:30 Urine Bilirubin NEGATIVE (NEGATIVE) 08/29/18 09:30 Urine Urobilinogen 1.0 E.U./dL (0.2 - 1.0) 08/29/18 09:30 Ur Leukocyte Esterase TRACE (NEGATIVE) H 08/29/18 09:30 Urine RBC 0-2 /hpf (0-5) 08/29/18 09:30 Urine WBC 2-5 /hpf (0-5) 08/29/18 09:30 Ur Epithelial Cells OCCASIONAL /lpf (FEW) 08/29/18 09:30 Urine Bacteria FEW /hpf (NONE SEEN) 08/29/18 09:30 - Physical Exam Vitals and I&O: Vital Signs Temp 98.7 F 09/16/18 14:00 Pulse 95 09/16/18 16:19 Resp 20 09/16/18 14:00 BP 156/95 09/16/18 16:19 Pulse Ox 95 09/16/18 14:00 Intake & Output 09/16/18 09/16/18 09/17/18 06:59 18:59 06:59 Intake Total 120 1250 Balance 120 1250 Intake: Oral 120 1250 Other: # Voids 2 # Bowel Movements 1 Active Medications: Current Medications Al Hydrox/Mg Hydrox/Simethicone (Maalox) 30 ml PO Q4HR PRN PRN Reason: GI DISTRESS Stop: 10/28/18 12:08 Benztropine Mesylate (Cogentin) 2 mg PO HS [facility] Stop: 10/28/18 20:59 Last Admin: 09/15/18 21:17 Dose: 2 mg Carbamazepine (Tegretol) 400 mg PO HS [facility] Stop: 10/28/18 20:59 Last Admin: 09/15/18 21:09 Dose: 400 mg Celecoxib (Celebrex) 100 mg PO BID [facility] Stop: 10/28/18 16:59 Last Admin: 09/16/18 16:19 Dose: 100 mg Docusate Sodium (Colace) 100 mg PO DAILY [facility] Stop: 10/29/18 08:59 Last Admin: 09/16/18 09:25 Dose: Not Given Lorazepam (Ativan) 0.5 mg PO Q4H PRN; Protocol PRN Reason: Agitation Stop: 10/28/18 16:54 Last Admin: 09/16/18 13:21 Dose: 0.5 mg Magnesium Hydroxide (Milk Of Magnesia) 30 ml PO HS PRN PRN Reason: Constipation Multivitamins/Vitamin C (Theragran) 1 tab PO DAILY [facility] Stop: 10/29/18 08:59 Last Admin: 09/16/18 09:25 Dose: Not Given Nifedipine (Procardia Xl) 60 mg PO BID [facility] Stop: 10/28/18 16:59 Last Admin: 09/16/18 16:19 Dose: 60 mg Olanzapine (Zyprexa Zydis) 7.5 mg PO HS [facility]; Protocol Stop: 10/30/18 20:59 Last Admin: 09/15/18 21:09 Dose: 7.5 mg Risperidone (Risperdal) 1 mg PO BID [facility]; Protocol Stop: 11/01/18 08:59 Last Admin: 09/16/18 16:20 Dose: 1 mg Valproate Sodium (Depakene) 500 mg PO BID [facility]; Protocol Stop: 11/11/18 08:59 Last Admin: 09/16/18 16:19 Dose: 500 mg Zolpidem Tartrate (Ambien) 5 mg PO HS PRN PRN Reason: Insomnia Stop: 10/28/18 12:08 Last Admin: 09/15/18 20:28 Dose: 5 mg General: alert HEENT: NC/AT, PERRLA, EOMI, anicteric sclerae, throat clear Neck: Supple, No JVD, No thyromegaly, +2 carotid pulse wo bruit, No LAD Lungs: CTAB Cardiovascular: Normal S1, Normal S2, without murmur Abdomen: soft, non-tender, non-distended Extremities: clear Neurological: no change Internal Medicine Assmt/Plan - Assessment Assessment: 1.HTN. 2.SEIZURE. 3.POLYARTHRITIS 4.PSYCHOSIS - Plan Plan: CONTINUE ON CURRENT MEDICATION AND DIET. Nutritional Asmnt/Malnutr-PDOC - Dietary Evaluation Malnutrition Findings (Please click <Entered> for more info): Nutritional Asmnt/Malnutrition Start: 09/04/18 15: 00 Text: Status: Complete Freq: Protocol: Document 09/04/18 15:02 LCBRUCEG (Rec: 09/04/18 15:04 [email or web address] [email or web address]) Nutritional Asmnt/Malnutrition Patient General Information Nutritional Screening Moderate Risk Diagnosis psychosis NOS Pertinent Medical Hx/Surgical Hx HTN, arthritis, anxiety, impulse diorder, depression, schizophrenia, extrapyramidal symptoms, bipolar Subjective Information Pt seen walking in hallway, confused, hyper verbal. Per EMR< PO intake 100%. Current Diet Order/ Nutrition Support regular Pertinent Medications colace, theragran Pertinent Labs no nutrition related labs Nutritional Hx/Data Height 1.52 m Height (Calculated Centimeters) 152.4 Current Weight (lbs) 58.967 kg Weight (Calculated Kilograms) 59.0 Weight (Calculated Grams) 54984.0 [place] Body Weight 100 Body Mass Index (BMI) 25.4 Weight Status Overweight GI Symptoms GI Symptoms None Last BM 09/03 Difficult in: None Skin Integrity/Comment: dryness, shaan 20 Current %PO Good (75-100%) Estimated Nutritional Goals BEE in Kcals: Using Current wt Calories/Kcals/Kg 23-27 Kcals Calculated 8719-2097 Protein: Using Current wt Protein g/k.8 Protein Calculated 51 Fluid: ml 1426-1674ml (1ml/kcal) Nutritional Problem No current Nutrition Prob Problem N/A Malnutrition Alert Is there a minimum of two criteria No selected? Query Text:Check all the applicable criteria. A minimum of two criteria are recommended for diagnosis of either severe or non-severe malnutrition. Malnutrition Related to Morbid Obesity Malnutrition related to morbid obesity No Intervention/Recommendation Comments 1. Continue with regular diet as ordered. 2. Monitor PO intake, wt, labs and skin integrity 3. F/U as low risk in 7 days Expected Outcomes/Goals Expected Outcomes/Goals 1. PO intake to meet at least 75% of nutritional needs. 2. Wt stability, skin to remain intact, labs to approach WNL.
[2018-09-16] MEDS: OLANZapine 5 mg Oral Disintegrating Tab PO SCH (20:38)
[2018-09-16] MEDS: Benztropine 1 MG TAB PO SCH (20:38)
--- NOTE | 2018-09-17 05:15 | Progress Notes ---
DATE: SUBJECTIVE: Chart was reviewed and the patient interviewed. Also discussed the patient's condition with the staff and reviewed records and labs. The patient is still suspicious and paranoid. The patient also still has episodes of thinking that the nursing staff are trying to poison her. Otherwise, the patient is more cooperative with treatment and more compliant with taking her medications. ASSESSMENT: The patient is still paranoid and psychotic, but less agitated and more compliant with medications. TREATMENT PLAN: Continue monitoring her behavior and her condition closely. Also, continue adjusting psychotropic medications and work on behavioral modification. JOB# [id number]
[2018-09-17] MEDS ORDERED: Haloperidol Lactate 5 mg/mL 1mL Vial IM PRN (06:24)
[2018-09-17] MEDS ORDERED: Haloperidol Lactate 5 mg/mL 1mL Vial IM ONE (07:10)
[2018-09-17] MEDS: Multivitamin Tab PO SCH (09:39)
[2018-09-17] MEDS: risperiDONE 1 mg/mL 30 mL Bottle PO SCH (09:40)
[2018-09-17] MEDS: NIFEdipine 30 mg ER Tab PO SCH (09:40)
--- NOTE | 2018-09-17 11:45 | Progress Notes ---
DATE: SUBJECTIVE: Chart was reviewed and the patient interviewed. Also discussed the patient's condition with the staff and reviewed records and labs. The patient is still extremely irritable and extremely agitated. The patient also is still restless and is still easily agitated. The patient also is having severe mood swings. She was delusional and "I am and I have ." The patient also is yelling and screaming and cursing staff and threatening others. She also is unable to follow any of staff directions. The patient is also refusing medications at times. ASSESSMENT: The patient is still aggressive and can be dangerous to others and is easily agitated. TREATMENT PLAN: Continue to monitor her behavior and her condition closely. Also, advised the patient to comply with taking her medications. At the same time, we will increase Risperdal to 2 mg twice a day and also will get Tegretol and Depakote blood levels and will continue to follow up closely. [facility]# [id number]
[2018-09-17] MEDS: OLANZapine 5 mg Oral Disintegrating Tab PO SCH (20:19)
[2018-09-17] MEDS: Benztropine 1 MG TAB PO SCH (20:20)
--- NOTE | 2018-09-17 23:14 | Internal Medicine Prog Note ---
Internal Medicine Subjective - Subjective Service Date: 09/17/18 Patient seen and examined:: without staff (SHE IS STILL CONFUSED) Patient is:: awake, verbal, in bed, talking, confused Per staff patient has:: no adverse event Internal Medicine Objective - Results Recent Labs: Laboratory Last Values Urine Source CLEAN C 08/29/18 09:30 Urine Color YELLOW 08/29/18 09:30 Urine Clarity CLEAR (CLEAR) 08/29/18 09:30 Urine pH 6.5 (4.6 - 8.0) 08/29/18 09:30 Ur Specific [place] 1.010 (1.005-1.030) 08/29/18 09:30 Urine Protein NEGATIVE mg/dL (NEGATIVE) 08/29/18 09:30 Urine Glucose (UA) NEGATIVE mg/dL (NEGATIVE) 08/29/18 09:30 Urine Ketones NEGATIVE mg/dL (NEGATIVE) 08/29/18 09:30 Urine Blood TRACE (NEGATIVE) 08/29/18 09:30 Urine Nitrate NEGATIVE (NEGATIVE) 08/29/18 09:30 Urine Bilirubin NEGATIVE (NEGATIVE) 08/29/18 09:30 Urine Urobilinogen 1.0 E.U./dL (0.2 - 1.0) 08/29/18 09:30 Ur Leukocyte Esterase TRACE (NEGATIVE) H 08/29/18 09:30 Urine RBC 0-2 /hpf (0-5) 08/29/18 09:30 Urine WBC 2-5 /hpf (0-5) 08/29/18 09:30 Ur Epithelial Cells OCCASIONAL /lpf (FEW) 08/29/18 09:30 Urine Bacteria FEW /hpf (NONE SEEN) 08/29/18 09:30 - Physical Exam Vitals and I&O: Vital Signs Temp 0 F 09/17/18 20:37 Pulse 104 09/16/18 20:45 Resp 20 09/16/18 20:45 BP 118/76 09/16/18 20:45 Pulse Ox 92 09/16/18 20:45 Intake & Output 09/17/18 09/17/18 09/18/18 06:59 18:59 06:59 Intake Total 240 120 Balance 240 120 Intake: Oral 240 120 Other: # Voids 2 3 # Bowel Movements 1 0 Active Medications: Current Medications Al Hydrox/Mg Hydrox/Simethicone (Maalox) 30 ml PO Q4HR PRN PRN Reason: GI DISTRESS Stop: 10/28/18 12:08 Benztropine Mesylate (Cogentin) 2 mg PO HS [facility]LE Stop: 10/28/18 20:59 Last Admin: 09/17/18 20:20 Dose: 2 mg Carbamazepine (Tegretol) 400 mg PO HS [facility] Stop: 10/28/18 20:59 Last Admin: 09/17/18 20:18 Dose: 400 mg Celecoxib (Celebrex) 100 mg PO BID [facility] Stop: 10/28/18 16:59 Last Admin: 09/17/18 09:37 Dose: Not Given Docusate Sodium (Colace) 100 mg PO DAILY [facility] Stop: 10/29/18 08:59 Last Admin: 09/17/18 09:38 Dose: Not Given Lorazepam (Ativan) 0.5 mg PO Q4H PRN; Protocol PRN Reason: Agitation Stop: 10/28/18 16:54 Last Admin: 09/17/18 13:55 Dose: 0.5 mg Magnesium Hydroxide (Milk Of Magnesia) 30 ml PO HS PRN PRN Reason: Constipation Multivitamins/Vitamin C (Theragran) 1 tab PO DAILY [facility] Stop: 10/29/18 08:59 Last Admin: 09/17/18 09:39 Dose: Not Given Nifedipine (Procardia Xl) 60 mg PO BID [facility] Stop: 10/28/18 16:59 Last Admin: 09/17/18 09:40 Dose: Not Given Olanzapine (Zyprexa Zydis) 7.5 mg PO HS [facility]; Protocol Stop: 10/30/18 20:59 Last Admin: 09/17/18 20:19 Dose: 7.5 mg Risperidone (Risperdal) 2 mg PO BID [facility]; Protocol Stop: 11/16/18 08:59 Last Admin: 09/17/18 09:40 Dose: Not Given Valproate Sodium (Depakene) 500 mg PO BID [facility]; Protocol Stop: 11/11/18 08:59 Last Admin: 09/17/18 09:40 Dose: Not Given Zolpidem Tartrate (Ambien) 5 mg PO HS PRN PRN Reason: Insomnia Stop: 10/28/18 12:08 Last Admin: 09/17/18 21:10 Dose: 5 mg General: alert HEENT: NC/AT, PERRLA, EOMI, anicteric sclerae, throat clear Neck: Supple, No JVD, No thyromegaly, +2 carotid pulse wo bruit, No LAD Lungs: CTAB Cardiovascular: Normal S1, Normal S2, without murmur Abdomen: soft, non-tender, non-distended Extremities: clear Neurological: no change Internal Medicine Assmt/Plan - Assessment Assessment: 1.HTN. 2.SEIZURE. 3.POLYARTHRITIS 4.PSYCHOSIS - Plan Plan: CONTINUE ON CURRENT MEDICATION AND DIET. Nutritional Asmnt/Malnutr-PDOC - Dietary Evaluation Malnutrition Findings (Please click <Entered> for more info): Nutritional Asmnt/Malnutrition Start: 09/04/18 15: 00 Text: Status: Complete Freq: Protocol: Document 09/04/18 15:02 [email or web address] (Rec: 09/04/18 15:04 [email or web address]) Nutritional Asmnt/Malnutrition Patient General Information Nutritional Screening Moderate Risk Diagnosis psychosis NOS Pertinent Medical Hx/Surgical Hx HTN, arthritis, anxiety, impulse diorder, depression, schizophrenia, extrapyramidal symptoms, bipolar Subjective Information Pt seen walking in hallway, confused, hyper verbal. Per EMR< PO intake 100%. Current Diet Order/ Nutrition Support regular Pertinent Medications colace, theragran Pertinent Labs no nutrition related labs Nutritional Hx/Data Height 1.52 m Height (Calculated Centimeters) 152.4 Current Weight (lbs) 58.967 kg Weight (Calculated Kilograms) 59.0 Weight (Calculated Grams) 73913.0 [place] Body Weight 100 Body Mass Index (BMI) 25.4 Weight Status Overweight GI Symptoms GI Symptoms None Last BM 09/03 Difficult in: None Skin Integrity/Comment: angel, shaan 20 Current %PO Good (75-100%) Estimated Nutritional Goals BEE in Kcals: Using Current wt Calories/Kcals/Kg 23-27 Kcals Calculated 3199-5959 Protein: Using Current wt Protein g/k.8 Protein Calculated 51 Fluid: ml 1426-1674ml (1ml/kcal) Nutritional Problem No current Nutrition Prob Problem N/A Malnutrition Alert Is there a minimum of two criteria No selected? Query Text:Check all the applicable criteria. A minimum of two criteria are recommended for diagnosis of either severe or non-severe malnutrition. Malnutrition Related to Morbid Obesity Malnutrition related to morbid obesity No Intervention/Recommendation Comments 1. Continue with regular diet as ordered. 2. Monitor PO intake, wt, labs and skin integrity 3. F/U as low risk in 7 days Expected Outcomes/Goals Expected Outcomes/Goals 1. PO intake to meet at least 75% of nutritional needs. 2. Wt stability, skin to remain intact, labs to approach WNL.
[2018-09-18] MEDS: NIFEdipine 30 mg ER Tab PO SCH ×2 (08:06→16:21)
[2018-09-18] MEDS: risperiDONE 1 mg/mL 30 mL Bottle PO SCH ×2 (08:06→16:22)
[2018-09-18] MEDS: Multivitamin Tab PO SCH (08:07)
--- NOTE | 2018-09-18 18:32 | Progress Notes ---
DATE: 09/18/2018 SUBJECTIVE: Chart was reviewed and the patient interviewed. Also discussed the patient's condition with the staff and reviewed records and labs. The patient was extremely agitated yesterday morning and she kept intrusive to other patients and also the staff. The patient also is still demanding and confused. The patient had to be given emergency medications yesterday to calm her down. Later on in the evening, the patient did take her medications with no side effects. ASSESSMENT: The patient is still agitated and psychotic. TREATMENT PLAN: Continue to work on the patient's confusion and psychosis and continue adjusting psychotropic medications and follow up closely. JOB# [id number]
--- NOTE | 2018-09-18 20:15 | Internal Medicine Prog Note ---
Internal Medicine Subjective - Subjective Service Date: 09/18/18 Patient seen and examined:: without staff (SHE IS STILL CONFUSED) Patient is:: awake, verbal, in bed, talking, confused Per staff patient has:: no adverse event Internal Medicine Objective - Results Recent Labs: Laboratory Last Values Urine Source CLEAN C 08/29/18 09:30 Urine Color YELLOW 08/29/18 09:30 Urine Clarity CLEAR (CLEAR) 08/29/18 09:30 Urine pH 6.5 (4.6 - 8.0) 08/29/18 09:30 Ur Specific [place] 1.010 (1.005-1.030) 08/29/18 09:30 Urine Protein NEGATIVE mg/dL (NEGATIVE) 08/29/18 09:30 Urine Glucose (UA) NEGATIVE mg/dL (NEGATIVE) 08/29/18 09:30 Urine Ketones NEGATIVE mg/dL (NEGATIVE) 08/29/18 09:30 Urine Blood TRACE (NEGATIVE) 08/29/18 09:30 Urine Nitrate NEGATIVE (NEGATIVE) 08/29/18 09:30 Urine Bilirubin NEGATIVE (NEGATIVE) 08/29/18 09:30 Urine Urobilinogen 1.0 E.U./dL (0.2 - 1.0) 08/29/18 09:30 Ur Leukocyte Esterase TRACE (NEGATIVE) H 08/29/18 09:30 Urine RBC 0-2 /hpf (0-5) 08/29/18 09:30 Urine WBC 2-5 /hpf (0-5) 08/29/18 09:30 Ur Epithelial Cells OCCASIONAL /lpf (FEW) 08/29/18 09:30 Urine Bacteria FEW /hpf (NONE SEEN) 08/29/18 09:30 - Physical Exam Vitals and I&O: Vital Signs Temp 0 F 09/18/18 14:24 Pulse 76 09/18/18 16:21 Resp 20 09/16/18 20:45 BP 129/82 09/18/18 16:21 Pulse Ox 92 09/16/18 20:45 Intake & Output 09/18/18 09/18/18 09/19/18 06:59 18:59 06:59 Intake Total 120 Balance 120 Intake: Oral 120 Other: # Voids 4 3 # Bowel Movements 0 1 Active Medications: Current Medications Al Hydrox/Mg Hydrox/Simethicone (Maalox) 30 ml PO Q4HR PRN PRN Reason: GI DISTRESS Stop: 10/28/18 12:08 Benztropine Mesylate (Cogentin) 2 mg PO HS [facility] Stop: 10/28/18 20:59 Last Admin: 09/17/18 20:20 Dose: 2 mg Carbamazepine (Tegretol) 400 mg PO HS [facility] Stop: 10/28/18 20:59 Last Admin: 09/17/18 20:18 Dose: 400 mg Celecoxib (Celebrex) 100 mg PO BID [facility] Stop: 10/28/18 16:59 Last Admin: 09/18/18 16:21 Dose: 100 mg Docusate Sodium (Colace) 100 mg PO DAILY [facility] Stop: 10/29/18 08:59 Last Admin: 09/18/18 08:07 Dose: 100 mg Lorazepam (Ativan) 0.5 mg PO Q4H PRN; Protocol PRN Reason: Agitation Stop: 10/28/18 16:54 Last Admin: 09/18/18 13:50 Dose: 0.5 mg Magnesium Hydroxide (Milk Of Magnesia) 30 ml PO HS PRN PRN Reason: Constipation Multivitamins/Vitamin C (Theragran) 1 tab PO DAILY [facility] Stop: 10/29/18 08:59 Last Admin: 09/18/18 08:07 Dose: 1 tab Nifedipine (Procardia Xl) 60 mg PO BID [facility] Stop: 10/28/18 16:59 Last Admin: 09/18/18 16:21 Dose: 60 mg Olanzapine (Zyprexa Zydis) 7.5 mg PO HS [facility]; Protocol Stop: 10/30/18 20:59 Last Admin: 09/17/18 20:19 Dose: 7.5 mg Risperidone (Risperdal) 2 mg PO BID [facility]; Protocol Stop: 11/16/18 08:59 Last Admin: 09/18/18 16:22 Dose: 2 mg Valproate Sodium (Depakene) 500 mg PO BID [facility]; Protocol Stop: 11/11/18 08:59 Last Admin: 09/18/18 16:22 Dose: 500 mg Zolpidem Tartrate (Ambien) 5 mg PO HS PRN PRN Reason: Insomnia Stop: 10/28/18 12:08 Last Admin: 09/17/18 21:10 Dose: 5 mg General: alert HEENT: NC/AT, PERRLA, EOMI, anicteric sclerae, throat clear Neck: Supple, No JVD, No thyromegaly, +2 carotid pulse wo bruit, No LAD Lungs: CTAB Cardiovascular: Normal S1, Normal S2, without murmur Abdomen: soft, non-tender, non-distended Extremities: clear Neurological: no change Internal Medicine Assmt/Plan - Assessment Assessment: 1.HTN. 2.SEIZURE. 3.POLYARTHRITIS 4.PSYCHOSIS - Plan Plan: CONTINUE ON CURRENT MEDICATION AND DIET. Nutritional Asmnt/Malnutr-PDOC - Dietary Evaluation Malnutrition Findings (Please click <Entered> for more info): Nutritional Asmnt/Malnutrition Start: 09/04/18 15: 00 Text: Status: Complete Freq: Protocol: Document 09/04/18 15:02 LCBRUCEG (Rec: 09/04/18 15:04 [email or web address]) Nutritional Asmnt/Malnutrition Patient General Information Nutritional Screening Moderate Risk Diagnosis psychosis NOS Pertinent Medical Hx/Surgical Hx HTN, arthritis, anxiety, impulse diorder, depression, schizophrenia, extrapyramidal symptoms, bipolar Subjective Information Pt seen walking in hallway, confused, hyper verbal. Per EMR< PO intake 100%. Current Diet Order/ Nutrition Support regular Pertinent Medications colace, theragran Pertinent Labs no nutrition related labs Nutritional Hx/Data Height 1.52 m Height (Calculated Centimeters) 152.4 Current Weight (lbs) 58.967 kg Weight (Calculated Kilograms) 59.0 Weight (Calculated Grams) 75512.0 [place] Body Weight 100 Body Mass Index (BMI) 25.4 Weight Status Overweight GI Symptoms GI Symptoms None Last BM 09/03 Difficult in: None Skin Integrity/Comment: dryness, shaan 20 Current %PO Good (75-100%) Estimated Nutritional Goals BEE in Kcals: Using Current wt Calories/Kcals/Kg 23-27 Kcals Calculated 1965-1925 Protein: Using Current wt Protein g/k.8 Protein Calculated 51 Fluid: ml 1426-1674ml (1ml/kcal) Nutritional Problem No current Nutrition Prob Problem N/A Malnutrition Alert Is there a minimum of two criteria No selected? Query Text:Check all the applicable criteria. A minimum of two criteria are recommended for diagnosis of either severe or non-severe malnutrition. Malnutrition Related to Morbid Obesity Malnutrition related to morbid obesity No Intervention/Recommendation Comments 1. Continue with regular diet as ordered. 2. Monitor PO intake, wt, labs and skin integrity 3. F/U as low risk in 7 days Expected Outcomes/Goals Expected Outcomes/Goals 1. PO intake to meet at least 75% of nutritional needs. 2. Wt stability, skin to remain intact, labs to approach WNL.
[2018-09-18] MEDS: OLANZapine 5 mg Oral Disintegrating Tab PO SCH (20:26)
[2018-09-18] MEDS: Benztropine 1 MG TAB PO SCH (20:27)
[2018-09-19] MEDS: Multivitamin Tab PO SCH (09:05)
[2018-09-19] MEDS: NIFEdipine 30 mg ER Tab PO SCH ×2 (09:05→16:31)
[2018-09-19] MEDS: risperiDONE 1 mg/mL 30 mL Bottle PO SCH ×2 (09:05→16:32)
--- NOTE | 2018-09-19 19:54 | Internal Medicine Prog Note ---
Internal Medicine Subjective - Subjective Service Date: 09/19/18 Patient seen and examined:: with staff (SHE IS STILL CONFUSED) Patient is:: awake, verbal, in bed, talking, confused Per staff patient has:: no adverse event Internal Medicine Objective - Results Recent Labs: Laboratory Last Values Urine Source CLEAN C 08/29/18 09:30 Urine Color YELLOW 08/29/18 09:30 Urine Clarity CLEAR (CLEAR) 08/29/18 09:30 Urine pH 6.5 (4.6 - 8.0) 08/29/18 09:30 Ur Specific [place] 1.010 (1.005-1.030) 08/29/18 09:30 Urine Protein NEGATIVE mg/dL (NEGATIVE) 08/29/18 09:30 Urine Glucose (UA) NEGATIVE mg/dL (NEGATIVE) 08/29/18 09:30 Urine Ketones NEGATIVE mg/dL (NEGATIVE) 08/29/18 09:30 Urine Blood TRACE (NEGATIVE) 08/29/18 09:30 Urine Nitrate NEGATIVE (NEGATIVE) 08/29/18 09:30 Urine Bilirubin NEGATIVE (NEGATIVE) 08/29/18 09:30 Urine Urobilinogen 1.0 E.U./dL (0.2 - 1.0) 08/29/18 09:30 Ur Leukocyte Esterase TRACE (NEGATIVE) H 08/29/18 09:30 Urine RBC 0-2 /hpf (0-5) 08/29/18 09:30 Urine WBC 2-5 /hpf (0-5) 08/29/18 09:30 Ur Epithelial Cells OCCASIONAL /lpf (FEW) 08/29/18 09:30 Urine Bacteria FEW /hpf (NONE SEEN) 08/29/18 09:30 - Physical Exam Vitals and I&O: Vital Signs Temp 98.2 F 09/19/18 14:05 Pulse 81 09/19/18 16:31 Resp 20 09/19/18 14:05 BP 129/79 09/19/18 16:31 Pulse Ox 98 09/19/18 14:05 Intake & Output 09/19/18 09/19/18 09/20/18 06:59 18:59 06:59 Intake Total 120 Balance 120 Intake: Oral 120 Other: # Voids 3 2 # Bowel Movements 0 Active Medications: Current Medications Al Hydrox/Mg Hydrox/Simethicone (Maalox) 30 ml PO Q4HR PRN PRN Reason: GI DISTRESS Stop: 10/28/18 12:08 Benztropine Mesylate (Cogentin) 2 mg PO HS [facility] Stop: 10/28/18 20:59 Last Admin: 09/18/18 20:27 Dose: 2 mg Carbamazepine (Tegretol) 400 mg PO HS [facility] Stop: 10/28/18 20:59 Last Admin: 09/18/18 20:25 Dose: 400 mg Celecoxib (Celebrex) 100 mg PO BID [facility] Stop: 10/28/18 16:59 Last Admin: 09/19/18 16:31 Dose: 100 mg Docusate Sodium (Colace) 100 mg PO DAILY [facility] Stop: 10/29/18 08:59 Last Admin: 09/19/18 09:05 Dose: 100 mg Lorazepam (Ativan) 0.5 mg PO Q4H PRN; Protocol PRN Reason: Agitation Stop: 10/28/18 16:54 Last Admin: 09/19/18 09:05 Dose: 0.5 mg Magnesium Hydroxide (Milk Of Magnesia) 30 ml PO HS PRN PRN Reason: Constipation Multivitamins/Vitamin C (Theragran) 1 tab PO DAILY [facility] Stop: 10/29/18 08:59 Last Admin: 09/19/18 09:05 Dose: 1 tab Nifedipine (Procardia Xl) 60 mg PO BID [facility] Stop: 10/28/18 16:59 Last Admin: 09/19/18 16:31 Dose: 60 mg Olanzapine (Zyprexa Zydis) 7.5 mg PO HS [facility]; Protocol Stop: 10/30/18 20:59 Last Admin: 09/18/18 20:26 Dose: 7.5 mg Risperidone (Risperdal) 2 mg PO BID [facility]; Protocol Stop: 11/16/18 08:59 Last Admin: 09/19/18 16:32 Dose: 2 mg Valproate Sodium (Depakene) 500 mg PO BID [facility]; Protocol Stop: 11/11/18 08:59 Last Admin: 09/19/18 16:31 Dose: 500 mg Zolpidem Tartrate (Ambien) 5 mg PO HS PRN PRN Reason: Insomnia Stop: 10/28/18 12:08 Last Admin: 09/17/18 21:10 Dose: 5 mg General: alert HEENT: NC/AT, PERRLA, EOMI, anicteric sclerae, throat clear Neck: Supple, No JVD, No thyromegaly, +2 carotid pulse wo bruit, No LAD Lungs: CTAB Cardiovascular: Normal S1, Normal S2, without murmur Abdomen: soft, non-tender, non-distended Extremities: clear Neurological: no change Internal Medicine Assmt/Plan - Assessment Assessment: 1.HTN. 2.SEIZURE. 3.POLYARTHRITIS 4.PSYCHOSIS - Plan Plan: CONTINUE ON CURRENT MEDICATION AND DIET. Nutritional Asmnt/Malnutr-PDOC - Dietary Evaluation Malnutrition Findings (Please click <Entered> for more info): Nutritional Asmnt/Malnutrition Start: 09/04/18 15: 00 Text: Status: Complete Freq: Protocol: Document 09/04/18 15:02 LCBRUCEG (Rec: 09/04/18 15:04 [email or web address]) Nutritional Asmnt/Malnutrition Patient General Information Nutritional Screening Moderate Risk Diagnosis psychosis NOS Pertinent Medical Hx/Surgical Hx HTN, arthritis, anxiety, impulse diorder, depression, schizophrenia, extrapyramidal symptoms, bipolar Subjective Information Pt seen walking in hallway, confused, hyper verbal. Per EMR< PO intake 100%. Current Diet Order/ Nutrition Support regular Pertinent Medications colace, theragran Pertinent Labs no nutrition related labs Nutritional Hx/Data Height 1.52 m Height (Calculated Centimeters) 152.4 Current Weight (lbs) 58.967 kg Weight (Calculated Kilograms) 59.0 Weight (Calculated Grams) 65284.0 [place] Body Weight 100 Body Mass Index (BMI) 25.4 Weight Status Overweight GI Symptoms GI Symptoms None Last BM 09/03 Difficult in: None Skin Integrity/Comment: dryness, shaan 20 Current %PO Good (75-100%) Estimated Nutritional Goals BEE in Kcals: Using Current wt Calories/Kcals/Kg 23-27 Kcals Calculated 4147-9297 Protein: Using Current wt Protein g/k.8 Protein Calculated 51 Fluid: ml 1426-1674ml (1ml/kcal) Nutritional Problem No current Nutrition Prob Problem N/A Malnutrition Alert Is there a minimum of two criteria No selected? Query Text:Check all the applicable criteria. A minimum of two criteria are recommended for diagnosis of either severe or non-severe malnutrition. Malnutrition Related to Morbid Obesity Malnutrition related to morbid obesity No Intervention/Recommendation Comments 1. Continue with regular diet as ordered. 2. Monitor PO intake, wt, labs and skin integrity 3. F/U as low risk in 7 days Expected Outcomes/Goals Expected Outcomes/Goals 1. PO intake to meet at least 75% of nutritional needs. 2. Wt stability, skin to remain intact, labs to approach WNL.
[2018-09-19] MEDS: OLANZapine 5 mg Oral Disintegrating Tab PO SCH (20:33)
[2018-09-19] MEDS: Benztropine 1 MG TAB PO SCH (20:33)
[2018-09-20] MEDS: NIFEdipine 30 mg ER Tab PO SCH (08:39)
[2018-09-20] MEDS: risperiDONE 1 mg/mL 30 mL Bottle PO SCH (08:40)
[2018-09-20] MEDS: Multivitamin Tab PO SCH (08:40)
--- NOTE | 2018-09-21 16:43 | Progress Notes ---
DATE: SUBJECTIVE: Chart was reviewed and the patient interviewed. Also discussed the patient's condition with the staff and reviewed records and labs. The patient is still argumentative and demanding and severely paranoid and delusional. The patient was also easily agitated and is still in angry and in irritable mood. She also is still confused and during my interview, the patient was rambling and kept looking around the room in a confused state and pointed out to imaginary objects. She also has been very restless and is still irritable. Otherwise, the patient still needs lots of redirections and still can be dangerous to others and she is refusing medications. TREATMENT PLAN: Continue monitoring her behavior and continue to work on her irritability and agitation and her compliance with medications. [facility]# [id number]
--- NOTE | 2018-09-21 16:44 | Discharge Summary ---
DATE OF DISCHARGE: 09/20/2018 PATIENT'S AGE: 68. SEX: Female. PHYSICIAN: Dr. Ramon. FINAL DIAGNOSES AND PRIMARY DIAGNOSES: Bipolar disorder, manic episode, severe with psychotic features. MEDICAL DIAGNOSES: Hypertension, muscle weakness. REASON FOR HOSPITALIZATION: The patient was admitted to the hospital because of increased agitation and striking out behavior and the patient was trying to hit staff. HOSPITAL COURSE: The patient continued to be agitated and in irritable mood. The patient also continued to resist care. She also was having episodes of yelling and screaming. The patient was given Tegretol in a dose of 400 mg at bedtime and also the patient was given Depakote 500 mg twice a day. The patient was refusing also to take medications including Zyprexa 7.5 mg at bedtime. Risperdal liquid was added in a dose of 2 mg twice a day and the patient was taking it on and off. The patient was calmer. She was less agitated and less irritable. The patient was discharged from the hospital back to [facility]. Physical examination of the patient showed that the patient had hypertension and muscle weakness. While the patient was in the hospital, the patient had no major medical problems. AFTER DISCHARGE PLANS: The patient to return to [facility] with plans to follow her there. EXPECTED OUTCOME AFTER DISCHARGE: Fair if the patient continues to take psychotropic medications, but if she continues to refuse medications prognosis is poor. [facility]# [id number]
== END 2018-09-20 15:15 | DRG 885 ==
LOC: ER 09:12 → GERO 10:37
PROVIDERS: ADMIT Psychiatry & Neurology Psychiatry; ATTEND Psychiatry & Neurology Psychiatry
DX: F31.2 Bipolar disorder, current episode manic severe with psychotic features (principal); I10 Essential (primary) hypertension; M19.90 Unspecified osteoarthritis, unspecified site; F17.210 Nicotine dependence, cigarettes, uncomplicated; G40.909 Epilepsy, unspecified, not intractable, without status epilepticus; M62.81 Muscle weakness (generalized); Z88.6 Allergy status to analgesic agent; Z88.2 Allergy status to sulfonamides; Z88.5 Allergy status to narcotic agent; Z88.8 Allergy status to other drugs, medicaments and biological substances
CPT/HCPCS: 81001-TC; 83036-90; 93005; G0410; J1200; J1630; J2060; Z7610